=== PATIENT | female | born 1940 | race Caucasian/White ===

== ENCOUNTER → 2017-11-24 | Outpatient (CLI) | payer MEDICARE ==
--- NOTE | 2017-11-28 10:11 | MM ---
Reason for exam: screening (asymptomatic). Last mammogram was performed 3 years and 3 months ago. History: Patient is postmenopausal. Family history of breast cancer in sister at age 60 and breast cancer in mother at age 60. Physical Findings: A clinical breast exam by your physician is recommended on an annual basis and results should be correlated with mammographic findings. MG Screening Mammo w CAD Bilateral CC and MLO view(s) were taken. Prior study comparison: August 14, 2014, bilateral MG screening mammo w CAD. May 30, 2012, bilateral digital screening mammo w/CAD. The breast tissue is heterogeneously dense. This may lower the sensitivity of mammography. No significant changes when compared with prior studies. ASSESSMENT: Benign, BI-RAD 2 RECOMMENDATION: Routine screening mammogram of both breasts in 1 year.
== END | disposition home or self-care (01) ==
LOC: RADMAMWWP 13:36
PROVIDERS: ATTEND Family Medicine
DX: Z12.31 Encounter for screening mammogram for malignant neoplasm of breast (principal)
CPT/HCPCS: 77067

== ENCOUNTER 2019-08-12 17:51 | Emergency (ER) | payer MEDICARE ==
[2019-08-12 18:03] VITALS: RESP 16
--- NOTE | 2019-08-12 18:26 | ED ---
General Adult HPI - General Chief complaint: Fall Stated complaint: Fell few wks ago/dizzy hip pain not able to walk Time Seen by Provider: 08/12/19 18:03 Source: patient, RN notes reviewed, old records reviewed Mode of arrival: ambulatory Limitations: no limitations - History of Present Illness Initial comments: 78-year-old female patient presents to the for chief complaint of fall and hip pain. Patient reports that prior to arrival to emergency department she was walking, felt dizzy, fell forward. She reports that she has pain in her left hip. Patient is not ambulatory since fall. Patient denies any use of blood thinners. Patient denies any trauma to head or neck. Patient also had a fall approximately 2 weeks ago when she landed flat on her back. Patient reports this is also from being unsteady in her feet. At this time patient reports pain in her left hip. Denies any other complaints at this time. Denies any loss of consciousness. Denies any trauma to head or neck. Systemic: Pt denies fatigue, fever/chills, rash. Pt denies weakness, night sweats, weight loss. Neuro: Pt denies headache, visual disturbances, syncope or pre-syncope. HEENT: Pt denies ocular discharge or irritation, otalgia, rhinorrhea, pharyngitis or notable lymphadenopathy. Cardiopulmonary: Pt denies chest pain, SOB, heart palpitations, dyspnea on exertion. Abdominal/GI: Pt denies abdominal pain, n/v/d. : Pt denies dysuria, burning w/ urination, frequency/urgency. Denies new onset urinary or bowel incontinence. MSK: Pt denies myalgia, loss of strength or function in extremities. Neuro: Pt denies new onset weakness, paresthesias. - Related Data Home Medications Medication Instructions Recorded Confirmed Aspirin EC [Ecotrin Low Dose] 81 mg PO DAILY 08/12/19 08/12/19 Diabetic Multivitamin 1 tab PO DAILY 08/12/19 08/12/19 Enalapril [Vasotec] 10 mg PO BID 08/12/19 08/12/19 Propranolol HCl [Propranolol HCl 60 mg PO DAILY 08/12/19 08/12/19 ER] Simvastatin [Zocor] 20 mg PO DAILY 08/12/19 08/12/19 amLODIPine [Norvasc] 5 mg PO DAILY 08/12/19 08/12/19 metFORMIN HCL [Glucophage] 500 mg PO TID 08/12/19 08/12/19 Previous Rx's Medication Instructions Recorded Cephalexin [Keflex] 500 mg PO Q6HR 10 Days #40 cap 08/12/19 Allergies Allergy/AdvReac Type Severity Reaction Status Date / Time Sulfa (Sulfonamide Allergy Severe Rash/Hives Verified 08/12/19 18:16 Antibiotics) sulfamethoxazole Allergy Severe Rash/Hives Verified 08/12/19 18:16 [From Bactrim] trimethoprim [From Bactrim] Allergy Severe Rash/Hives Verified 08/12/19 18:16 Review of Systems ROS Statement: Those systems with pertinent positive or pertinent negative responses have been documented in the HPI. ROS Other: All systems not noted in ROS Statement are negative. Past Medical History Past Medical History: Diabetes Mellitus, Hypertension History of Any Multi-Drug Resistant Organisms: None Reported Past Surgical History: Orthopedic Surgery Additional Past Surgical History / Comment(s): right shoulder Past Psychological History: No Psychological Hx Reported Smoking Status: Never smoker Past Alcohol Use History: None Reported Past Drug Use History: None Reported General Exam - General Exam Comments Initial Comments: Constitutional: NAD, AOX3, Pt has pleasant affect. HEENT: NC/AT, trachea midline, neck supple, no lymphadenopathy. Posterior pharynx non erythematous, without exudates. External ears appear normal, without discharge. Mucous membranes moist. Eyes PERRLA, EOM intact. There is no scleral icterus. No pallor noted. Cardiopulmonary: RRR, no murmurs, rubs or gallops, no JVD noted. Lungs CTAB in anterior and posterior oreilly. No peripheral edema. Abdominal exam: Abdomen soft and non-distended. Abdomen non-tender to palpation in all 4 quadrants. Bowel sounds active in LLQ. No hepatosplenomegaly. No ecchymosis Neuro: CN II-XII grossly intact. No nuchal rigidity. No raccon eyes, no coreas sign, no hemotympanum. No cervical spinal tenderness. MSK: Hips nontender bilaterally. No posterior calf tenderness bilaterally, homans sign negative bilaterally. Posterior tibialis and radial pulse +2 bilaterally. Sensation intact in upper and lower extremities. Full active ROM in upper and lower extremities, 5/5 stregnth. Limitations: no limitations Course Vital Signs 08/12/19 17:58 Temperature 99.5 F Pulse Rate 92 Respiratory 16 Rate Blood Pressure 144/69 O2 Sat by Pulse 96 Oximetry Medical Decision Making - Medical Decision Making 78-year-old female patient presents to the for chief complaint of fall and hip pain. Patient reports that prior to arrival to emergency department she was walking, felt dizzy, fell forward. She reports that she has pain in her left hip. Patient is not ambulatory since fall. Patient denies any use of blood thinners. Patient denies any trauma to head or neck. Patient also had a fall approximately 2 weeks ago when she landed flat on her back. Patient reports this is also from being unsteady in her feet. At this time patient reports pain in her left hip. Denies any other complaints at this time. Denies any loss of consciousness. Denies any trauma to head or neck. Patient vital signs stable, afebrile. Physical exam did not display acute pathology. Neurologic exam is within normal limits. Laboratory Investigations revealed a leukocytosis of 20. Mild hyperglycemia. UA displayed urinary tract infection. Chest x-ray, plain film of hip and AP pelvis, brain CT did not display acute process. Patient leukocytosis likely secondary to urinary tract infection. Urine was cultured. EKG not concerning for acute ischemia. Troponin negative.Please use medication as discussed. Please follow-up with family doctor in the next 2 days of symptoms have not improved. Please return to emergency room if the symptoms in crease or worsen or for any other concerns. IV Rocephin ED. We'll discharged with oral Keflex and close outpatient follow-up. Patient and family are in agreement with this plan. Case discussed with Dr. Sosa. - Lab Data Result diagrams: 08/12/19 19:00 08/12/19 19:00 Lab Results 08/12/19 08/12/19 08/12/19 Range/Units 18:52 19:00 19:00 WBC 20.2 H (3.8-10.6) k/uL RBC 4.16 (3.80-5.40) m/uL Hgb 12.9 (11.4-16.0) gm/dL Hct 39.6 (34.0-46.0) % MCV 95.2 (80.0-100.0) fL MCH 30.9 (25.0-35.0) pg MCHC 32.5 (31.0-37.0) g/dL RDW 12.2 (11.5-15.5) % Plt Count 249 (150-450) k/uL Neutrophils % 91 % Lymphocytes % 3 % Monocytes % 4 % Eosinophils % 0 % Basophils % 0 % Neutrophils # 18.3 H (1.3-7.7) k/uL Lymphocytes # 0.6 L (1.0-4.8) k/uL Monocytes # 0.9 (0-1.0) k/uL Eosinophils # 0.1 (0-0.7) k/uL Basophils # 0.1 (0-0.2) k/uL Sodium 132 L (137-145) mmol/L Potassium 4.1 (3.5-5.1) mmol/L Chloride 97 L (98-107) mmol/L Carbon Dioxide 25 (22-30) mmol/L Anion Gap 10 mmol/L BUN 19 H (7-17) mg/dL Creatinine 0.63 (0.52-1.04) mg/dL Est GFR (CKD-EPI)AfAm >90 (>60 ml/min/1.73 sqM) Est GFR (CKD-EPI)NonAf 86 (>60 ml/min/1.73 sqM) Glucose 251 H (74-99) mg/dL POC Glucose (mg/dL) 229 H (75-99) mg/dL POC Glu Knowledge Engineer ID [place] Calcium 9.7 (8.4-10.2) mg/dL Phosphorus 2.7 (2.5-4.5) mg/dL Magnesium 1.7 (1.6-2.3) mg/dL Troponin I (0.000-0.034) ng/mL Urine Color Urine Appearance (Clear) Urine pH (5.0-8.0) Ur Specific [place] (1.001-1.035) Urine Protein (Negative) Urine Glucose (UA) (Negative) Urine Ketones (Negative) Urine Blood (Negative) Urine Nitrite (Negative) Urine Bilirubin (Negative) Urine Urobilinogen (<2.0) mg/dL Ur Leukocyte Esterase (Negative) Urine WBC (0-5) /hpf Urine Bacteria (None) /hpf Urine Mucus (None) /hpf 08/12/19 08/12/19 Range/Units 19:00 19:30 WBC (3.8-10.6) k/uL RBC (3.80-5.40) m/uL Hgb (11.4-16.0) gm/dL Hct (34.0-46.0) % MCV (80.0-100.0) fL MCH (25.0-35.0) pg MCHC (31.0-37.0) g/dL RDW (11.5-15.5) % Plt Count (150-450) k/uL Neutrophils % % Lymphocytes % % Monocytes % % Eosinophils % % Basophils % % Neutrophils # (1.3-7.7) k/uL Lymphocytes # (1.0-4.8) k/uL Monocytes # (0-1.0) k/uL Eosinophils # (0-0.7) k/uL Basophils # (0-0.2) k/uL Sodium (137-145) mmol/L Potassium (3.5-5.1) mmol/L Chloride (98-107) mmol/L Carbon Dioxide (22-30) mmol/L Anion Gap mmol/L BUN (7-17) mg/dL Creatinine (0.52-1.04) mg/dL Est GFR (CKD-EPI)AfAm (>60 ml/min/1.73 sqM) Est GFR (CKD-EPI)NonAf (>60 ml/min/1.73 sqM) Glucose (74-99) mg/dL POC Glucose (mg/dL) (75-99) mg/dL POC Glu Knowledge Engineer ID Calcium (8.4-10.2) mg/dL Phosphorus (2.5-4.5) mg/dL Magnesium (1.6-2.3) mg/dL Troponin I 0.015 (0.000-0.034) ng/mL Urine Color Yellow Urine Appearance Cloudy H (Clear) Urine pH 7.0 (5.0-8.0) Ur Specific [place] 1.012 (1.001-1.035) Urine Protein Trace H (Negative) Urine Glucose (UA) 3+ H (Negative) Urine Ketones 1+ H (Negative) Urine Blood Small H (Negative) Urine Nitrite Positive H (Negative) Urine Bilirubin Negative (Negative) Urine Urobilinogen <2.0 (<2.0) mg/dL Ur Leukocyte Esterase Trace H (Negative) Urine WBC 13 H (0-5) /hpf Urine Bacteria Few H (None) /hpf Urine Mucus Rare H (None) /hpf - EKG Data -: EKG Interpreted by Me EKG Comments: Ventricular rate 93, appearing for 146, QRS 96, QT/QTC 38/482. Sinus rhythm with sinus arrhythmia, otherwise normal EKG, no concern for acute ischemia. Disposition Clinical Impression: Fall, UTI (urinary tract infection) Disposition: HOME SELF-CARE Condition: Stable Instructions (If sedation given, give patient instructions): Urinary Tract Infection in Women (ED), Fall Prevention (ED) Additional Instructions: Patient to adhere to previously discussed treatment plan and will take medication(s) as directed. Patient to follow up with PCP in 1-2 days. Patient to return to ED if symptoms do not improve. Tkae Medication as directed. Follow-up with primary care provider tomorrow. Return to ER if condition worsens. Prescriptions: Cephalexin [Keflex] 500 mg PO Q6HR 10 Days #40 cap Is patient prescribed a controlled substance at d/c from ED?: No Referrals: Adrianne Yu DO [Primary Care Provider] - 1-2 days
[2019-08-12] MEDS ORDERED: SODIUM CHLORIDE 0.9% 500 ML 500 ML IV ONE (18:39)
--- NOTE | 2019-08-12 18:45 | XR ---
EXAMINATION TYPE: XR Hip LT and AP Pelvis DATE OF EXAM: 08/12/2019 COMPARISON: NONE HISTORY: Fall. Hip pain TECHNIQUE: A single AP view of the pelvis is obtained. Two views of the left hip are obtained. FINDINGS: The pelvic ring is intact. Proximal left femur and hip joint are intact. Sacroiliac joints appear normal. There is vascular calcification. IMPRESSION: Negative pelvis and left hip exam.
[2019-08-12 18:57] LABS: Glucose,Whole Blood 229 mg/dL (75-99)
[2019-08-12 19:14] LABS: Basophils # (A) 0.1 k/uL (0-0.2); Basophils % (A) 0 %; Eosinophils # (A) 0.1 k/uL (0-0.7); Eosinophils % (A) 0 %; HCT 39.6 % (34.0-46.0); HGB 12.9 gm/dL (11.4-16.0); Lymphocytes # (A) 0.6 k/uL (1.0-4.8); Lymphocytes % (A) 3 %; MCH 30.9 pg (25.0-35.0); MCHC 32.5 g/dL (31.0-37.0); MCV 95.2 fL (80.0-100.0); Mean Platelet Volume 6.2; Monocytes # (A) 0.9 k/uL (0-1.0); Monocytes % (A) 4 %; Neutrophils # (A) 18.3 k/uL (1.3-7.7); Neutrophils % (A) 91 %; Platelet Count 249 k/uL (150-450); RBC 4.16 m/uL (3.80-5.40); RDW 12.2 % (11.5-15.5); WBC 20.2 k/uL (3.8-10.6)
[2019-08-12 19:26] LABS: African American GFR (CKD) >90 (>60 ml/min/1.73 sqM); Anion Gap 10 mmol/L; Blood Urea Nitrogen 19 mg/dL (7-17); Calcium 9.7 mg/dL (8.4-10.2); Carbon Dioxide 25 mmol/L (22-30); Chloride 97 mmol/L (98-107); Glucose 251 mg/dL (74-99); Magnesium 1.7 mg/dL (1.6-2.3); Phosphorus 2.7 mg/dL (2.5-4.5); Potassium 4.1 mmol/L (3.5-5.1); Sodium 132 mmol/L (137-145)
[2019-08-12 19:49] LABS: Appearance,Urine Cloudy (Clear); Bacteria,Urine Few /hpf; Bilirubin,Urine Negative (Negative); Blood,Urine Small (Negative); Color,Urine Yellow; Glucose,Urine (UA) 3+ (Negative); Ketones,Urine 1+ (Negative); Leukocyte Esterase,Urine Trace (Negative); Mucus,Urine Rare /hpf; Nitrite,Urine Positive (Negative); Protein,Urine Trace (Negative); Specific Gravity,Urine 1.012 (1.001-1.035); Urobilinogen,Urine <2.0 mg/dL (<2.0); WBC,Urine 13 /hpf (0-5)
--- NOTE | 2019-08-12 20:03 | CT ---
EXAMINATION TYPE: CT brain wo con DATE OF EXAM: 08/12/2019 COMPARISON: None HISTORY: Dizziness and fall. CT DLP: 1139.4 mGycm Automated exposure control for dose reduction was used. FINDINGS: There is cerebral cortical atrophy. There is no mass effect nor midline shift. There is no sign of in tracranial hemorrhage. The calvarium is intact. IMPRESSION: MILD ATROPHY. NO ACUTE INTRACRANIAL ABNORMALITY.
--- NOTE | 2019-08-12 20:32 | XR ---
EXAMINATION TYPE: XR chest 2V DATE OF EXAM: 08/12/2019 COMPARISON: NONE HISTORY: Fall and weakness TECHNIQUE: Frontal and lateral views of the chest are obtained. FINDINGS: There is no heart failure nor confluent pneumonic infiltrate. There are no hilar masses. T horacic aorta is atheromatous. There is minor spurring in the thoracic spine. Costophrenic angles are clear. There is moderate arthritic change in the shoulder joints with significant subacromial joint space narrowing and impingement. IMPRESSION: No active cardiopulmonary disease. Normal heart. Atheromatous aorta.
[2019-08-12] MEDS ORDERED: IBUPROFEN 600 MG TAB PO STA (20:43)
[2019-08-12] MEDS ORDERED: CEPHALEXIN 500MG STARTER PACK 4 CAP BTL PO STA (20:43)
[2019-08-12] MEDS ORDERED: IBUPROFEN 600 MG STARTER PACK 4 TAB BTL PO STA (20:43)
[2019-08-12 20:59] VITALS: BP 133/87; PULSE 87; TEMP 98
== END 2019-08-12 20:59 | disposition home or self-care (01) ==
LOC: EC 17:51
DX: N39.0 Urinary tract infection, site not specified (principal); M25.552 Pain in left hip; E11.65 Type 2 diabetes mellitus with hyperglycemia; I10 Essential (primary) hypertension; Z79.82 Long term (current) use of aspirin; Z79.84 Long term (current) use of oral hypoglycemic drugs; Z79.899 Other long term (current) drug therapy; Z88.1 Allergy status to other antibiotic agents; Z88.2 Allergy status to sulfonamides; W19.XXXA Unspecified fall, initial encounter; Y93.01 Activity, walking, marching and hiking
CPT/HCPCS: 36415; 93005; 80048; 83735; 84100; 84484; 85025; 81001; 87086; 73502; 71046; 70450; 99285; 96365; 96361; J0696; 87077; 87186

== ENCOUNTER 2021-03-14 16:38 | Observation (INO) | payer MEDICARE ==
[2021-03-14] MEDS ORDERED: SODIUM CHLORIDE 0.9% 1,000 ML IV STA (16:55)
--- NOTE | 2021-03-14 16:57 | ED ---
Weakness HPI - General Chief complaint: Weakness Stated complaint: Weakness Time Seen by Provider: 03/14/21 16:49 Source: patient Mode of arrival: wheelchair Limitations: no limitations - History of Present Illness Initial comments: Sheryl is an 80-year-old female is brought to the ER today by her daughter for evaluation of generalized weakness. Patient has a history of essential tremor but lives independently ambulate since and drives. Over the past week her daughters noted that she is very weak she can no longer ambulate without assistance. This has happened in the past when the patient has had a urinary infection. Patient denies any acute complaints aside from the weakness reports she feels mildly fatigued. - Related Data Home Medications Medication Instructions Recorded Confirmed Aspirin EC [Ecotrin Low Dose] 81 mg PO DAILY 08/12/19 03/14/21 Diabetic Multivitamin 1 tab PO DAILY 08/12/19 03/14/21 Enalapril [Vasotec] 10 mg PO BID 08/12/19 03/14/21 Propranolol HCl [Propranolol HCl 60 mg PO DAILY 08/12/19 03/14/21 ER] Simvastatin [Zocor] 20 mg PO Q48H 08/12/19 03/14/21 amLODIPine [Norvasc] 5 mg PO DAILY 08/12/19 03/14/21 metFORMIN HCL [Glucophage] 500 mg PO BID 08/12/19 03/14/21 Glimepiride [Amaryl] 1 mg PO DAILY 03/14/21 03/14/21 Multivitamins, Thera [Multivitamin 1 tab PO DAILY 03/14/21 03/14/21 (formulary)] Oxybutynin Chloride [Ditropan] 5 mg PO DAILY 03/14/21 03/14/21 Allergies Allergy/AdvReac Type Severity Reaction Status Date / Time Sulfa (Sulfonamide Allergy Severe Rash/Hives Verified 03/14/21 18:45 Antibiotics) sulfamethoxazole Allergy Severe Rash/Hives Verified 03/14/21 18:45 [From Bactrim] trimethoprim [From Bactrim] Allergy Severe Rash/Hives Verified 03/14/21 18:45 Review of Systems ROS Statement: Those systems with pertinent positive or pertinent negative responses have been documented in the HPI. ROS Other: All systems not noted in ROS Statement are negative. Past Medical History Past Medical History: Diabetes Mellitus, Hypertension History of Any Multi-Drug Resistant Organisms: None Reported Past Surgical History: Orthopedic Surgery Additional Past Surgical History / Comment(s): right shoulder Past Psychological History: No Psychological Hx Reported Smoking Status: Never smoker Past Alcohol Use History: None Reported Past Drug Use History: None Reported General Exam - General Exam Comments Initial Comments: Physical Exam GENERAL: Patient is well-developed and well-nourished elderly female in no acute distress Patient is nontoxic and well-hydrated and is in no distress. HENT: Normocephalic, Atraumatic. EYES: PERRL, EOMI PULMONARY: Unlabored respirations. No audible rales rhonchi or wheezing was noted. CARDIOVASCULAR: There is a regular rate and rhythm without any murmurs gallops or rubs. ABDOMEN: Soft and nontender with normal bowel sounds. SKIN: Skin is clear with no lesions or rashes and otherwise unremarkable. : Deferred NEUROLOGIC: Patient is alert and oriented x3. Moving all extremities spontaneously Tremor noted most prominent in the right upper extremity at baseline per patient MUSCULOSKELETAL: Generalized weakness, requires assistance with transfer from wheelchair to bed and bed to commode PSYCHIATRIC: Normal psychiatric evaluation. Limitations: no limitations Course Vital Signs 03/14/21 03/14/21 16:46 18:07 Temperature 97.9 F 97.6 F Pulse Rate 81 76 Respiratory 18 20 Rate Blood Pressure 115/67 137/62 O2 Sat by Pulse 96 97 Oximetry EKG Findings - EKG Comments: EKG Findings:: KG was obtained due to complaint of weakness, rate is 73 rhythm is sinus, MA 144, QRS 88, QTC 429 there are no acute ST elevations or depressions no evidence of ischemia or infarction Medical Decision Making - Medical Decision Making Patient seen and evaluated history is obtained from patient and daughter bedside Labs were obtained and were relatively unremarkable urine does show bacteria and nitrates no leukocyte esterase Rocephin will be ordered Patient with continued urinary urgency was able to produce approximately 100 mL's of urine bladder scan showed over 700 mL's in the bladder and she was straight cathed which produced 800mL Head CT was obtained due to generalized weakness urinary retention in gait instability but CT was negative Patient care was discussed with admitting physician Dr. Jordan who accepts the admission After admission patient and daughter remember the patient has a history of bladder prolapse and wears a pessary she is currently wearing her pessary but has not followed with gynecology in a number of years - Lab Data Result diagrams: 03/14/21 16:59 03/14/21 16:59 Lab Results 03/14/21 03/14/21 03/14/21 Range/Units 16:59 16:59 16:59 WBC 6.4 (3.8-10.6) k/uL RBC 4.12 (3.80-5.40) m/uL Hgb 13.5 (11.4-16.0) gm/dL Hct 39.0 (34.0-46.0) % MCV 94.6 (80.0-100.0) fL MCH 32.8 (25.0-35.0) pg MCHC 34.6 (31.0-37.0) g/dL RDW 11.9 (11.5-15.5) % Plt Count 231 (150-450) k/uL MPV 6.7 Neutrophils % 63 % Lymphocytes % 23 % Monocytes % 8 % Eosinophils % 2 % Basophils % 1 % Neutrophils # 4.0 (1.3-7.7) k/uL Lymphocytes # 1.5 (1.0-4.8) k/uL Monocytes # 0.5 (0-1.0) k/uL Eosinophils # 0.2 (0-0.7) k/uL Basophils # 0.1 (0-0.2) k/uL Sodium 135 L (137-145) mmol/L Potassium 4.5 (3.5-5.1) mmol/L Chloride 102 (98-107) mmol/L Carbon Dioxide 24 (22-30) mmol/L Anion Gap 9 mmol/L BUN 25 H (7-17) mg/dL Creatinine 0.72 (0.52-1.04) mg/dL Est GFR (CKD-EPI)AfAm >90 (>60 ml/min/1.73 sqM) Est GFR (CKD-EPI)NonAf 80 (>60 ml/min/1.73 sqM) Glucose 165 H (74-99) mg/dL POC Glucose (mg/dL) (75-99) mg/dL POC Glu Sales Professional ID Calcium 9.7 (8.4-10.2) mg/dL Magnesium 1.8 (1.6-2.3) mg/dL Total Bilirubin 0.4 (0.2-1.3) mg/dL AST 35 (14-36) U/L ALT 26 (4-34) U/L Alkaline Phosphatase 68 (38-126) U/L Total Protein 7.4 (6.3-8.2) g/dL Albumin 4.4 (3.5-5.0) g/dL TSH 1.760 (0.465-4.680) mIU/L Urine Color Yellow Urine Appearance Clear (Clear) Urine pH 5.5 (5.0-8.0) Ur Specific [place] 1.011 (1.001-1.035) Urine Protein Negative (Negative) Urine Glucose (UA) Negative (Negative) Urine Ketones Negative (Negative) Urine Blood Negative (Negative) Urine Nitrite Positive H (Negative) Urine Bilirubin Negative (Negative) Urine Urobilinogen <2.0 (<2.0) mg/dL Ur Leukocyte Esterase Negative (Negative) Urine RBC 2 (0-5) /hpf Urine WBC 2 (0-5) /hpf Urine Bacteria Many H (None) /hpf Urine Mucus Rare H (None) /hpf Coronavirus (PCR) (Not Detectd) 03/14/21 03/14/21 Range/Units 17:17 20:16 WBC (3.8-10.6) k/uL RBC (3.80-5.40) m/uL Hgb (11.4-16.0) gm/dL Hct (34.0-46.0) % MCV (80.0-100.0) fL MCH (25.0-35.0) pg MCHC (31.0-37.0) g/dL RDW (11.5-15.5) % Plt Count (150-450) k/uL MPV Neutrophils % % Lymphocytes % % Monocytes % % Eosinophils % % Basophils % % Neutrophils # (1.3-7.7) k/uL Lymphocytes # (1.0-4.8) k/uL Monocytes # (0-1.0) k/uL Eosinophils # (0-0.7) k/uL Basophils # (0-0.2) k/uL Sodium (137-145) mmol/L Potassium (3.5-5.1) mmol/L Chloride (98-107) mmol/L Carbon Dioxide (22-30) mmol/L Anion Gap mmol/L BUN (7-17) mg/dL Creatinine (0.52-1.04) mg/dL Est GFR (CKD-EPI)AfAm (>60 ml/min/1.73 sqM) Est GFR (CKD-EPI)NonAf (>60 ml/min/1.73 sqM) Glucose (74-99) mg/dL POC Glucose (mg/dL) 143 H (75-99) mg/dL POC Glu Sales Professional ID [place]ue [place] Calcium (8.4-10.2) mg/dL Magnesium (1.6-2.3) mg/dL Total Bilirubin (0.2-1.3) mg/dL AST (14-36) U/L ALT (4-34) U/L Alkaline Phosphatase (38-126) U/L Total Protein (6.3-8.2) g/dL Albumin (3.5-5.0) g/dL TSH (0.465-4.680) mIU/L Urine Color Urine Appearance (Clear) Urine pH (5.0-8.0) Ur Specific [place] (1.001-1.035) Urine Protein (Negative) Urine Glucose (UA) (Negative) Urine Ketones (Negative) Urine Blood (Negative) Urine Nitrite (Negative) Urine Bilirubin (Negative) Urine Urobilinogen (<2.0) mg/dL Ur Leukocyte Esterase (Negative) Urine RBC (0-5) /hpf Urine WBC (0-5) /hpf Urine Bacteria (None) /hpf Urine Mucus (None) /hpf Coronavirus (PCR) Not Detected (Not Detectd) Disposition Clinical Impression: UTI (urinary tract infection), Generalized weakness, Bladder prolapse, female, acquired, Urinary retention Disposition: ADMITTED IP TO THIS [facility] Condition: Stable Is patient prescribed a controlled substance at d/c from ED?: No Referrals: Adrianne Yu DO [REFERRING] - 1-2 days
[2021-03-14 17:06] LABS: Basophils # (A) 0.1 k/uL (0-0.2); Basophils % (A) 1 %; Eosinophils # (A) 0.2 k/uL (0-0.7); Eosinophils % (A) 2 %; HGB 13.5 gm/dL (11.4-16.0); Lymphocytes # (A) 1.5 k/uL (1.0-4.8); Lymphocytes % (A) 23 %; MCH 32.8 pg (25.0-35.0); MCHC 34.6 g/dL (31.0-37.0); MCV 94.6 fL (80.0-100.0); Mean Platelet Volume 6.7; Monocytes # (A) 0.5 k/uL (0-1.0); Monocytes % (A) 8 %; Neutrophils % (A) 63 %; Platelet Count 231 k/uL (150-450); RBC 4.12 m/uL (3.80-5.40); RDW 11.9 % (11.5-15.5); WBC 6.4 k/uL (3.8-10.6)
[2021-03-14 17:16] LABS: ALT 26 U/L (4-34); AST 35 U/L (14-36); African American GFR (CKD) >90 (>60 ml/min/1.73 sqM); Albumin 4.4 g/dL (3.5-5.0); Alkaline Phosphatase 68 U/L (38-126); Anion Gap 9 mmol/L; Blood Urea Nitrogen 25 mg/dL (7-17); Calcium 9.7 mg/dL (8.4-10.2); Carbon Dioxide 24 mmol/L (22-30); Chloride 102 mmol/L (98-107); Glucose 165 mg/dL (74-99); Magnesium 1.8 mg/dL (1.6-2.3); Non-African American GFR(CKD) 80 (>60 ml/min/1.73 sqM); Potassium 4.5 mmol/L (3.5-5.1); Sodium 135 mmol/L (137-145); Total Bilirubin 0.4 mg/dL (0.2-1.3); Total Protein 7.4 g/dL (6.3-8.2)
[2021-03-14 18:30] LABS: Appearance,Urine Clear (Clear); Bacteria,Urine Many /hpf; Bilirubin,Urine Negative (Negative); Blood,Urine Negative (Negative); Color,Urine Yellow; Glucose,Urine (UA) Negative (Negative); Ketones,Urine Negative (Negative); Leukocyte Esterase,Urine Negative (Negative); Mucus,Urine Rare /hpf; Nitrite,Urine Positive (Negative); PH, Urine 5.5 (5.0-8.0); Protein,Urine Negative (Negative); RBC,Urine 2 /hpf (0-5); Specific Gravity,Urine 1.011 (1.001-1.035); Urobilinogen,Urine <2.0 mg/dL (<2.0); WBC,Urine 2 /hpf (0-5)
[2021-03-14 20:19] LABS: Glucose,Whole Blood 143 mg/dL (75-99)
--- NOTE | 2021-03-14 21:18 | CT ---
EXAMINATION TYPE: CT brain wo con DATE OF EXAM: 03/14/2021 COMPARISON: 08/12/2019 HISTORY: Weakness and confusion. CT DLP: 1111.4 mGycm Automated exposure control for dose reduction was used. There is cerebral cortical atrophy. There is no mass effect nor midline shift. There is no sign of in tracranial hemorrhage. Calvarium is intact. There is normal aeration of the mastoid air cells. Skull base is intact. IMPRESSION: Cerebral atrophy. No acute intracranial abnormality. No change.
[2021-03-14] MEDS ORDERED: cefTRIAXone IN SWFI 1,000 MG/10 ML SYRINGE IVP ONE (21:45)
[2021-03-14] MEDS ORDERED: IBUPROFEN 400 MG TAB PO PRN (21:57)
[2021-03-14] MEDS ORDERED: NALOXONE 0.4 MG/ML 1 ML VIAL IV PRN (21:57)
[2021-03-14] MEDS ORDERED: ACETAMINOPHEN TAB 325 MG TAB PO PRN (21:57)
[2021-03-14] MEDS ORDERED: ONDANSETRON 4 MG/2 ML VIAL IVP PRN (23:13)
[2021-03-15 06:48] LABS: Glucose,Whole Blood 140 mg/dL (75-99)
[2021-03-15] MEDS: amLODIPine 5 MG TAB PO SCH (09:30)
[2021-03-15] MEDS: ASPIRIN 81 MG PO SCH (09:30)
[2021-03-15] MEDS: GLIMEPIRIDE 1 MG TAB PO SCH (09:30)
[2021-03-15 11:22] LABS: Glucose,Whole Blood 240 mg/dL (75-99)
[2021-03-15 16:27] LABS: Glucose,Whole Blood 249 mg/dL (75-99)
[2021-03-15 20:47] LABS: Glucose,Whole Blood 215 mg/dL (75-99)
[2021-03-15] MEDS ORDERED: ATORVASTATIN 10 MG TAB PO SCH (21:00)
--- NOTE | 2021-03-16 06:21 | P.HPIM ---
History of Present Illness H&P Date: 03/15/21 Chief Complaint: abdominal pain Sheryl Montejo is an 80 yo F with PMH of HTN, T2DM, bladder prolapse who presented to the ED complaining of weakness and fatigue. She denies fever, chills but notes has been sleeping more. She does endorse some abdominal pressure. Pt denies nausea, vomiting. On presentation, vitals stable, labs significant for WBC 6k, sodium 135, UA with positive bacteria and nitrites, COVID negative. Straight cath with 800 cc out. Review of Systems All systems: negative Constitutional: Reports fatigue, Reports malaise, Reports weakness, Denies chills, Denies fever Eyes: denies blurred vision, denies pain Ears, nose, mouth and throat: Denies headache, Denies sore throat Cardiovascular: Denies chest pain, Denies shortness of breath Respiratory: Denies cough Gastrointestinal: Reports abdominal pain, Denies diarrhea, Denies nausea, Denies vomiting Genitourinary: Denies dysuria, Denies hematuria Musculoskeletal: Denies myalgias Integumentary: Denies pruritus, Denies rash Neurological: Denies numbness, Denies weakness Psychiatric: Denies anxiety, Denies depression Endocrine: Denies fatigue, Denies weight change Past Medical History Past Medical History: Diabetes Mellitus, Hypertension Additional Past Medical History / Comment(s): prolapsed bladder with a pessary History of Any Multi-Drug Resistant Organisms: None Reported Past Surgical History: Adenoidectomy, Orthopedic Surgery, Tonsillectomy Additional Past Surgical History / Comment(s): right shoulder Past Anesthesia/Blood Transfusion Reactions: No Reported Reaction Past Psychological History: No Psychological Hx Reported Smoking Status: Never smoker Past Alcohol Use History: None Reported Past Drug Use History: None Reported Medications and Allergies Home Medications Medication Instructions Recorded Confirmed Type Aspirin EC [Ecotrin Low Dose] 81 mg PO DAILY 08/12/19 03/14/21 History Diabetic Multivitamin 1 tab PO DAILY 08/12/19 03/14/21 History Enalapril [Vasotec] 10 mg PO BID 08/12/19 03/14/21 History Propranolol HCl [Propranolol HCl 60 mg PO DAILY 08/12/19 03/14/21 History ER] Simvastatin [Zocor] 20 mg PO Q48H 08/12/19 03/14/21 History amLODIPine [Norvasc] 5 mg PO DAILY 08/12/19 03/14/21 History metFORMIN HCL [Glucophage] 500 mg PO BID 08/12/19 03/14/21 History Glimepiride [Amaryl] 1 mg PO DAILY 03/14/21 03/14/21 History Multivitamins, Thera [Multivitamin 1 tab PO DAILY 03/14/21 03/14/21 History (formulary)] Oxybutynin Chloride [Ditropan] 5 mg PO DAILY 03/14/21 03/14/21 History Allergies Allergy/AdvReac Type Severity Reaction Status Date / Time Sulfa (Sulfonamide Allergy Severe Rash/Hives Verified 03/14/21 18:45 Antibiotics) sulfamethoxazole Allergy Severe Rash/Hives Verified 03/14/21 18:45 [From Bactrim] trimethoprim [From Bactrim] Allergy Severe Rash/Hives Verified 03/14/21 18:45 Physical Exam Vitals: Vital Signs Temp Pulse Resp BP Pulse Ox 03/16/21 02:00 98.0 F 65 16 124/65 99 03/15/21 20:00 72 16 03/15/21 19:43 98.3 F 72 16 132/67 95 03/15/21 13:52 98.3 F 68 18 116/61 95 03/15/21 07:54 97.9 F 66 18 124/70 95 03/15/21 07:00 18 Intake and Output 03/15/21 03/15/21 03/16/21 14:59 22:59 06:59 Output Total 700 1450 1400 Balance -700 -1450 -1400 Output: Urine 700 1450 1400 Uretheral (Shaikh) 700 Other: Voiding Method Indwelling Catheter General: well nourished, well developed, NAD. Vitals reviewed Eyes: PERRL, EOMI, conjunctiva normal HENT: normocephalic, mucus membranes moist Neck: supple, no JVD Lungs: normal respiratory effort, no wheezes or rales CV: Regular rate and rhythm, no murmur. Peripheral pulses 2+ Abdomen: soft, nondistended, no organomegaly. Suprapubic pressure Lymph: no cervical or axillary LAD Skin: warm and dry. Neuro: A&Ox3, normal mood and affect Results CBC & Chem 7: 03/14/21 16:59 03/14/21 16:59 Labs: Abnormal Lab Results - Last 24 Hours (Table) 03/15/21 03/15/21 03/15/21 Range/Units 06:46 11:20 16:26 POC Glucose (mg/dL) 140 H 240 H 249 H (75-99) mg/dL 03/15/21 Range/Units 20:45 POC Glucose (mg/dL) 215 H (75-99) mg/dL Thrombosis Risk Factor Assmnt - Choose All That Apply Each Risk Factor Represents 3 Points: Age 75 years or older Thrombosis Risk Factor Assessment Total Risk Factor Score: 3 Thrombosis Risk Factor Assessment Level: Moderate Risk Assessment and Plan (1) Bladder prolapse, female, acquired Current Visit: Yes Status: Acute Code(s): N81.10 - CYSTOCELE, UNSPECIFIED SNOMED Code(s): 267117987 (2) Generalized weakness Current Visit: Yes Status: Acute Code(s): R53.1 - WEAKNESS SNOMED Code(s): 31823558 (3) UTI (urinary tract infection) Current Visit: Yes Status: Acute Code(s): N39.0 - URINARY TRACT INFECTION, SITE NOT SPECIFIED SNOMED Code(s): 61894804 (4) Urinary retention Current Visit: Yes Status: Acute Code(s): R33.9 - RETENTION OF URINE, UNSPECIFIED SNOMED Code(s): 277584151 Plan: 1. Acute cystitis and acute urinary retention. Admit and start rocephin. Shaikh catheter placed 2. T2DM. Continue amaryl, hold metformin. accuchecks 3. HTN. Continue norvasc 4. Bladder prolapse. Continue with pessary device
[2021-03-16 07:08] LABS: Glucose,Whole Blood 138 mg/dL (75-99)
[2021-03-16] MEDS: amLODIPine 5 MG TAB PO SCH (07:18)
[2021-03-16] MEDS: GLIMEPIRIDE 1 MG TAB PO SCH (07:18)
[2021-03-16] MEDS: ASPIRIN 81 MG PO SCH (07:18)
[2021-03-16] MEDS: INSULIN ASPART (NovoLOG) 100 UNIT/ML VIAL SQ SCH ×2 (07:19→11:54)
[2021-03-16] MEDS ORDERED: TAMSULOSIN 0.4 MG CAP.ER.24H PO STA (11:25)
[2021-03-16 11:53] LABS: Glucose,Whole Blood 161 mg/dL (75-99)
[2021-03-16 13:25] VITALS: BP 129/70; PULSE 98; RESP 18; TEMP 98
--- NOTE | 2021-03-16 15:34 | P.DS ---
Providers Date of admission: 03/14/21 21:58 Expected date of discharge: 03/16/21 Attending physician: Marques Nance MD Primary care physician: Marques Nance MD Hospital Course: Final Diagnoses: (1) Bladder prolapse, female, acquired Current Visit: Yes Status: Acute Code(s): N81.10 - CYSTOCELE, UNSPECIFIED SNOMED Code(s): 227900704 (2) Generalized weakness Current Visit: Yes Status: Acute Code(s): R53.1 - WEAKNESS SNOMED Code(s): 06034451 (3) UTI (urinary tract infection) Current Visit: Yes Status: Acute Code(s): N39.0 - URINARY TRACT INFECTION, SITE NOT SPECIFIED SNOMED Code(s): 52614944 (4) Urinary retention Current Visit: Yes Status: Acute Code(s): R33.9 - RETENTION OF URINE, UNSPECIFIED SNOMED Code(s): 144447418 Hospital course:Sheryl Montejo is an 80 yo F with PMH of HTN, T2DM, bladder prolapse who presented to the ED complaining of weakness and fatigue. She denies fever, chills but notes has been sleeping more. She does endorse some abdominal pressure. Pt denies nausea, vomiting. On presentation, vitals stable, labs significant for WBC 6k, sodium 135, UA with positive bacteria and nitrites, COVID negative. Straight cath with 800 cc out. Evaluated by PT, recommendations noted including rolling walker, supervision. Significant clinical improvement. Shaikh discontinued, positive spontaneous void within 290 mL's post void residual. Flomax added to med regimen. Post void residuals measured from 236-290. Mild diffuse weakness, would benefit from physical therapy. Patient requesting physical therapy at home. Patient will require Shaikh catheter at discharge and to follow-up with urology in 1 week. Patient will be discharged home today with [facility] in a stable condition with current prognosis. The impression and plan of care has been dictated as directed. : I performed a history and examination of this patient, discussed the same with the dictator. I agree with the dictator's note ,documented as a scribe. Any additional findings or plans will be noted. Patient Condition at Discharge: Stable Plan - Discharge Summary Discharge Rx Participant: No New Discharge Prescriptions: New Cefuroxime Axetil [Ceftin] 500 mg PO BID 5 Days #10 tab Tamsulosin [Flomax] 0.4 mg PO DAILY #30 cap Continue Diabetic Multivitamin 1 tab PO DAILY Aspirin EC [Ecotrin Low Dose] 81 mg PO DAILY metFORMIN HCL [Glucophage] 500 mg PO BID amLODIPine [Norvasc] 5 mg PO DAILY Simvastatin [Zocor] 20 mg PO Q48H Propranolol HCl [Propranolol HCl ER] 60 mg PO DAILY Enalapril [Vasotec] 10 mg PO BID Multivitamins, Thera [Multivitamin (formulary)] 1 tab PO DAILY Oxybutynin Chloride [Ditropan] 5 mg PO DAILY Glimepiride [Amaryl] 1 mg PO DAILY Discharge Medication List Aspirin EC [Ecotrin Low Dose] 81 mg PO DAILY 08/12/19 [History] Diabetic Multivitamin 1 tab PO DAILY 08/12/19 [History] Enalapril [Vasotec] 10 mg PO BID 08/12/19 [History] Propranolol HCl [Propranolol HCl ER] 60 mg PO DAILY 08/12/19 [History] Simvastatin [Zocor] 20 mg PO Q48H 08/12/19 [History] amLODIPine [Norvasc] 5 mg PO DAILY 08/12/19 [History] metFORMIN HCL [Glucophage] 500 mg PO BID 08/12/19 [History] Glimepiride [Amaryl] 1 mg PO DAILY 03/14/21 [History] Multivitamins, Thera [Multivitamin (formulary)] 1 tab PO DAILY 03/14/21 [History] Oxybutynin Chloride [Ditropan] 5 mg PO DAILY 03/14/21 [History] Cefuroxime Axetil [Ceftin] 500 mg PO BID 5 Days #10 tab 03/16/21 [Rx] Tamsulosin [Flomax] 0.4 mg PO DAILY #30 cap 03/16/21 [Rx] Follow up Appointment(s)/Referral(s): Marques Nance MD [Primary Care Provider] - 03/19/21 2:00 pm [facility] [NON-STAFF] - Kodi Bernard MD [STAFF PHYSICIAN] - 04/06/21 8:20 am Ambulatory/Diagnostic Orders: Complete Blood Count w/diff [LAB.AMB] Time Frame: 3 Days, Location: None Selected Patient Instructions/Handouts: Urinary Tract Infection in Women (DC), Shaikh Catheter Placement and Care (DC) Activity/Diet/Wound Care/Special Instructions: CC home with Shaikh catheter, confirm urology follow-up appointment prior to discharge. [facility] Discharge Disposition: HOME WITH HOME HEALTH SERVICES
== END 2021-03-16 16:07 | disposition home health service (06) ==
LOC: EC 16:38 → 4SSUR 21:58
PROVIDERS: ADMIT Family Medicine; ATTEND Family Medicine
DX: N30.00 Acute cystitis without hematuria (principal); N81.10 Cystocele, unspecified; E11.9 Type 2 diabetes mellitus without complications; I10 Essential (primary) hypertension; G25.0 Essential tremor; R33.9 Retention of urine, unspecified; R26.89 Other abnormalities of gait and mobility; Z20.822 Contact with and (suspected) exposure to COVID-19; Z79.82 Long term (current) use of aspirin; Z79.84 Long term (current) use of oral hypoglycemic drugs; Z79.899 Other long term (current) drug therapy; Z88.1 Allergy status to other antibiotic agents; Z88.2 Allergy status to sulfonamides; Z98.890 Other specified postprocedural states
CPT/HCPCS: 96365; 96366 ×2; 96375; 96361; 99285; 51798; 36415; 93005; 97161; 97166; 80053; 83735; 84443; 85025; 81001; 87635; 70450; G0378 ×3; J2405; J0696 ×2

== ENCOUNTER 2021-05-27 15:09 | Emergency (ER) | payer MEDICARE ==
[2021-05-27 15:20] VITALS: TEMP 98.6
--- NOTE | 2021-05-27 15:40 | ED ---
General Adult HPI - General Chief complaint: Nausea/Vomiting/Diarrhea Stated complaint: Stool labs sent by pcp Time Seen by Provider: 05/27/21 15:27 Source: patient Mode of arrival: ambulatory Limitations: no limitations - History of Present Illness Initial comments: Patient is an 80-year-old female presenting to the emergency Department with complaints of diarrhea that has been increasing over the past week. Patient saw her PCP today who recommended coming in for further evaluation. She states she normally has diarrhea intermittently for years now secondary to being on metformin. She states she was treated for UTI last month and since then her diarrhea has increased. She was having some abdominal pain on Monday and with the diarrhea, her doctor put her on Cipro and Flagyl. She states that the Flagyl was making her feel dizzy and not well so she stopped taking that, she has been on the Cipro for the last 4 days. She went for a follow-up today and they recommended her coming in for a stool study to rule out C. diff as well as an abdominal workup. She states her abdominal pain is gone today, she has no nausea or vomiting. She denies any fevers or chills, no chest pain or shortness of breath. She admits to tubal ligation, no other abdominal surgeries. She has been eating and drinking as her normal diet. She denies any dysuria or frequency. She has no further complaints at this time. Her vitals are within normal limits. - Related Data Home Medications Medication Instructions Recorded Confirmed Aspirin EC [Ecotrin Low Dose] 81 mg PO BID 08/12/19 05/27/21 Diabetic Multivitamin 1 tab PO HS 08/12/19 05/27/21 Enalapril [Vasotec] 20 mg PO BID 08/12/19 05/27/21 Propranolol HCl [Propranolol HCl 60 mg PO HS 08/12/19 05/27/21 ER] Simvastatin [Zocor] 20 mg PO Q48H 08/12/19 05/27/21 metFORMIN HCL [Glucophage] 500 mg PO W/SUPPER 08/12/19 05/27/21 Glimepiride [Amaryl] 1 mg PO DAILY 03/14/21 05/27/21 Multivitamins, Thera [Multivitamin 1 tab PO DAILY 03/14/21 05/27/21 (formulary)] Oxybutynin Chloride [Ditropan] 5 mg PO HS 03/14/21 05/27/21 Ciprofloxacin HCl [Cipro] 500 mg PO BID 05/27/21 05/27/21 Mirabegron [Myrbetriq] 50 mg PO DAILY 05/27/21 05/27/21 Allergies Allergy/AdvReac Type Severity Reaction Status Date / Time Sulfa (Sulfonamide Allergy Severe Rash/Hives Verified 05/27/21 15:20 Antibiotics) sulfamethoxazole Allergy Severe Rash/Hives Verified 05/27/21 15:20 [From Bactrim] trimethoprim [From Bactrim] Allergy Severe Rash/Hives Verified 05/27/21 15:20 Review of Systems ROS Statement: Those systems with pertinent positive or pertinent negative responses have been documented in the HPI. ROS Other: All systems not noted in ROS Statement are negative. Past Medical History Past Medical History: Diabetes Mellitus, Hypertension Additional Past Medical History / Comment(s): prolapsed bladder with a pessary, UTI History of Any Multi-Drug Resistant Organisms: None Reported Past Surgical History: Adenoidectomy, Orthopedic Surgery, Tonsillectomy Additional Past Surgical History / Comment(s): right shoulder Past Anesthesia/Blood Transfusion Reactions: No Reported Reaction Past Psychological History: No Psychological Hx Reported Smoking Status: Never smoker Past Alcohol Use History: None Reported Past Drug Use History: None Reported General Exam - General Exam Comments Initial Comments: GENERAL: Patient is well-developed and well-nourished. Patient is nontoxic and in no acute distress. HEAD: Atraumatic, normocephalic. EYES: Pupils equal round and reactive to light, extraocular movements intact, sclera anicteric, conjunctiva are normal. Eyelids were unremarkable. ENT: TMs normal, nares patent, oropharynx clear without exudates. Moist mucous membranes. NECK: Normal range of motion, supple without lymphadenopathy or JVD. LUNGS: Unlabored respirations. Breath sounds clear to auscultation bilaterally and equal. No wheezes rales or rhonchi. HEART: Regular rate and rhythm without murmurs, rubs or gallops. ABDOMEN: Soft, nontender, normoactive bowel sounds. No guarding, no rebound. No masses appreciated. : Deferred MUSCULOSKELETAL: Normal extremities with adequate strength and normal range of motion, no pitting or edema. No clubbing or cyanosis. NEUROLOGICAL: Patient is alert and oriented x 3. Motor and sensory are also intact. Cranial nerves II through XII grossly intact. Symmetrical smile. Normal speech, normal gait. PSYCH: Normal mood, normal affect. SKIN: Warm, Dry, normal turgor, no rashes or lesions noted. Limitations: no limitations Course Vital Signs 05/27/21 05/27/21 05/27/21 15:16 15:36 18:00 Temperature 98.6 F Pulse Rate 78 68 70 Respiratory 17 20 20 Rate Blood Pressure 188/88 136/82 157/80 O2 Sat by Pulse 97 97 95 Oximetry Medical Decision Making - Medical Decision Making Patient is an 80-year-old female sent in by her PCPs office for diarrhea, requesting a computed tomography scan as well. Her vitals are stable. She has no abdominal pain, no fevers. Her labs are all within normal limits, urine shows no evidence for infection. CT of abdomen and pelvis shows no acute proce ss at this time. I did order a C. diff were patient was unable to have a bowel movement here in the ER. I will send her home with an order to test for C. diff. She stable for discharge. I recommended continuing with her already prescribed antibiotics. She should follow-up with her primary care doctor. She could have a trial of Imodium for the diarrhea. Patient and patient's family are agreeable to this plan of care. Return parameters were discussed with them they verbalized understanding. Case discussed with Dr. Sosa. - Lab Data Result diagrams: 05/27/21 15:53 05/27/21 15:53 Lab Results 05/27/21 05/27/21 05/27/21 Range/Units 15:52 15:53 15:53 WBC 6.9 (3.8-10.6) k/uL RBC 4.40 (3.80-5.40) m/uL Hgb 15.0 (11.4-16.0) gm/dL Hct 42.7 (34.0-46.0) % MCV 97.1 (80.0-100.0) fL MCH 34.1 (25.0-35.0) pg MCHC 35.1 (31.0-37.0) g/dL RDW 12.5 (11.5-15.5) % Plt Count 253 (150-450) k/uL MPV 6.8 Neutrophils % 67 % Lymphocytes % 21 % Monocytes % 7 % Eosinophils % 1 % Basophils % 1 % Neutrophils # 4.6 (1.3-7.7) k/uL Lymphocytes # 1.4 (1.0-4.8) k/uL Monocytes # 0.5 (0-1.0) k/uL Eosinophils # 0.1 (0-0.7) k/uL Basophils # 0.1 (0-0.2) k/uL Sodium 137 (137-145) mmol/L Potassium 4.1 (3.5-5.1) mmol/L Chloride 105 (98-107) mmol/L Carbon Dioxide 22 (22-30) mmol/L Anion Gap 10 mmol/L BUN 19 H (7-17) mg/dL Creatinine 0.61 (0.52-1.04) mg/dL Est GFR (CKD-EPI)AfAm >90 (>60 ml/min/1.73 sqM) Est GFR (CKD-EPI)NonAf 86 (>60 ml/min/1.73 sqM) Glucose 118 H (74-99) mg/dL Calcium 10.0 (8.4-10.2) mg/dL Total Bilirubin 0.2 (0.2-1.3) mg/dL AST 34 (14-36) U/L ALT 17 (4-34) U/L Alkaline Phosphatase 68 (38-126) U/L Total Protein 7.5 (6.3-8.2) g/dL Albumin 4.4 (3.5-5.0) g/dL Urine Color Light Yellow Urine Appearance Clear (Clear) Urine pH 7.5 (5.0-8.0) Ur Specific [place] 1.009 (1.001-1.035) Urine Protein Negative (Negative) Urine Glucose (UA) Negative (Negative) Urine Ketones Negative (Negative) Urine Blood Moderate H (Negative) Urine Nitrite Negative (Negative) Urine Bilirubin Negative (Negative) Urine Urobilinogen <2.0 (<2.0) mg/dL Ur Leukocyte Esterase Negative (Negative) Urine RBC 11 H (0-5) /hpf Urine WBC 1 (0-5) /hpf Ur Squamous Epith Cells 1 (0-4) /hpf Urine Bacteria Rare H (None) /hpf Disposition Clinical Impression: Diarrhea Disposition: HOME SELF-CARE Condition: Stable Instructions (If sedation given, give patient instructions): Acute Diarrhea (ED) Additional Instructions: Please return to the Emergency Department if symptoms worsen or any other concerns. Trial of Imodium for diarrhea. Continue to drink your water daily. Take your antibiotics as already prescribed. Prescription for C. diff test was given. Follow-up with your primary care physician. Is patient prescribed a controlled substance at d/c from ED?: No Referrals: Marques Nance MD [Primary Care Provider] - 1-2 days Time of Disposition: 18:19
[2021-05-27] MEDS ORDERED: SODIUM CHLORIDE 0.9% 500 ML 500 ML IV STA (15:41)
[2021-05-27 15:48] VITALS: RESP 20
[2021-05-27 16:04] LABS: Basophils # (A) 0.1 k/uL (0-0.2); Basophils % (A) 1 %; Eosinophils # (A) 0.1 k/uL (0-0.7); Eosinophils % (A) 1 %; HCT 42.7 % (34.0-46.0); Lymphocytes # (A) 1.4 k/uL (1.0-4.8); Lymphocytes % (A) 21 %; MCH 34.1 pg (25.0-35.0); MCHC 35.1 g/dL (31.0-37.0); MCV 97.1 fL (80.0-100.0); Mean Platelet Volume 6.8; Monocytes # (A) 0.5 k/uL (0-1.0); Monocytes % (A) 7 %; Neutrophils # (A) 4.6 k/uL (1.3-7.7); Neutrophils % (A) 67 %; Platelet Count 253 k/uL (150-450); RDW 12.5 % (11.5-15.5); WBC 6.9 k/uL (3.8-10.6)
[2021-05-27 16:11] LABS: Appearance,Urine Clear (Clear); Bacteria,Urine Rare /hpf; Bilirubin,Urine Negative (Negative); Blood,Urine Moderate (Negative); Color,Urine Light Yellow; Glucose,Urine (UA) Negative (Negative); Ketones,Urine Negative (Negative); Leukocyte Esterase,Urine Negative (Negative); Nitrite,Urine Negative (Negative); PH, Urine 7.5 (5.0-8.0); Protein,Urine Negative (Negative); RBC,Urine 11 /hpf (0-5); Specific Gravity,Urine 1.009 (1.001-1.035); Squamous Epithelial Cell,Urine 1 /hpf (0-4); Urobilinogen,Urine <2.0 mg/dL (<2.0); WBC,Urine 1 /hpf (0-5)
[2021-05-27 16:17] LABS: ALT 17 U/L (4-34); AST 34 U/L (14-36); African American GFR (CKD) >90 (>60 ml/min/1.73 sqM); Albumin 4.4 g/dL (3.5-5.0); Alkaline Phosphatase 68 U/L (38-126); Anion Gap 10 mmol/L; Blood Urea Nitrogen 19 mg/dL (7-17); Carbon Dioxide 22 mmol/L (22-30); Chloride 105 mmol/L (98-107); Glucose 118 mg/dL (74-99); Non-African American GFR(CKD) 86 (>60 ml/min/1.73 sqM); Potassium 4.1 mmol/L (3.5-5.1); Sodium 137 mmol/L (137-145); Total Bilirubin 0.2 mg/dL (0.2-1.3); Total Protein 7.5 g/dL (6.3-8.2)
--- NOTE | 2021-05-27 17:51 | CT ---
EXAMINATION TYPE: CT abdomen pelvis w con DATE OF EXAM: 05/27/2021 COMPARISON: None available. HISTORY: Generalized pain with nausea and diarrhea CT DLP: 851 mGycm Automated exposure control for dose reduction was used. TECHNIQUE: Helical acquisition of images was performed from the lung bases through the pelvis. CONTRAST: Performed without Oral Contrast and with IV Contrast, patient injected with 100 mL of Isovue 300. FINDINGS: LUNG BASES: No significant abnormality is appreciated. LIVER/GB: No significant abnormality is appreciated. PANCREAS: No significant abnormality is seen. SPLEEN: No significant abnormality is seen. ADRENALS: No significant abnormality is seen. KIDNEYS: Right renal pelvic ectasia versus parapelvic cyst. Otherwise no hydronephrosis or nephrolith iasis. FREE AIR: No free air is visualized. RETROPERITONEAL ADENOPATHY: None visualized REPRODUCTIVE ORGANS: No significant abnormality is seen URINARY BLADDER: Mildly distended urinary bladder. Otherwise no acute abnormality is seen. PELVIC ADENOPATHY: None visualized. OSSEOUS STRUCTURES: No significant abnormality is seen. BOWEL: No significant abnormality is seen. OTHER: Pessary device seen. Moderate atherosclerotic disease. IMPRESSION: NO DEFINITE ACUTE ABNORMALITY. RIGHT RENAL PELVIC VERSUS PARAPELVIC CYST. DISTENDED URINARY BLADDER.
[2021-05-27 18:05] VITALS: BP 157/80; PULSE 70
== END 2021-05-27 18:40 | disposition home or self-care (01) ==
LOC: EC 15:09
DX: E11.9 Type 2 diabetes mellitus without complications (principal); I10 Essential (primary) hypertension; Z79.82 Long term (current) use of aspirin; Z79.84 Long term (current) use of oral hypoglycemic drugs; Z79.899 Other long term (current) drug therapy; Z88.1 Allergy status to other antibiotic agents; Z88.2 Allergy status to sulfonamides
CPT/HCPCS: 36415; 80053; 85025; 81001; 74177; 99284; Q9967

== ENCOUNTER 2021-06-06 12:37 | Inpatient (IN) | payer MEDICARE ==
[2021-06-06] MEDS ORDERED: SODIUM CHLORIDE 0.9% 500 ML 500 ML IV STA (12:59)
[2021-06-06] MEDS ORDERED: MORPHINE SULFATE 2 MG/ML SYRINGE IVP STA ×2 (13:01→15:07)
--- NOTE | 2021-06-06 13:13 | ED ---
General Adult HPI - General Chief complaint: Fall Stated complaint: FAll Time Seen by Provider: 06/06/21 12:41 Source: patient, EMS, RN notes reviewed Mode of arrival: EMS Limitations: no limitations - History of Present Illness Initial comments: 80-year-old female with a past medical history of diabetes mellitus, hypertension, UTI presents to the emergency room for a chief complaint of fall. Around 8 PM last night patient was walking up the stairs when she fell down the flight of stairs. There are about 15 stairs in total. Patient does not recall how or why she fell. Does not recall tripping. Does not recall losing consciousness or passing out leading to her fall. Patient states she does not believe she lost consciousness. States she crawled to another room and slept on the floor. Patient's granddaughter came today and found her. Patient is not taking blood thinners. Patient is complaining of pain in her upper back when breathing.Patient has no other complaints at this time including shortness of breath, chest pain, abdominal pain, nausea or vomiting, headache, or visual changes. - Related Data Home Medications Medication Instructions Recorded Confirmed Aspirin EC [Ecotrin Low Dose] 81 mg PO BID 08/12/19 06/06/21 Enalapril [Vasotec] 20 mg PO BID 08/12/19 06/06/21 Propranolol HCl [Propranolol HCl 60 mg PO HS 08/12/19 06/06/21 ER] Simvastatin [Zocor] 20 mg PO Q48H 08/12/19 06/06/21 Glimepiride [Amaryl] 1 mg PO DAILY 03/14/21 06/06/21 Multivitamins, Thera [Multivitamin 1 tab PO DAILY 03/14/21 06/06/21 (formulary)] Oxybutynin Chloride [Ditropan] 5 mg PO HS 03/14/21 06/06/21 Mirabegron [Myrbetriq] 50 mg PO DAILY 05/27/21 06/06/21 metFORMIN HCL ER [Glucophage XR] 500 mg PO AC-SUPPER 06/06/21 06/06/21 Allergies Allergy/AdvReac Type Severity Reaction Status Date / Time Sulfa (Sulfonamide Allergy Severe Rash/Hives Verified 05/27/21 15:20 Antibiotics) sulfamethoxazole Allergy Severe Rash/Hives Verified 07/29/21 15:20 [From Bactrim] trimethoprim [From Bactrim] Allergy Severe Rash/Hives Verified 05/27/21 15:20 Review of Systems ROS Statement: Those systems with pertinent positive or pertinent negative responses have been documented in the HPI. ROS Other: All systems not noted in ROS Statement are negative. Past Medical History Past Medical History: Diabetes Mellitus, Hypertension Additional Past Medical History / Comment(s): prolapsed bladder with a pessary, UTI History of Any Multi-Drug Resistant Organisms: None Reported Past Surgical History: Adenoidectomy, Orthopedic Surgery, Tonsillectomy Additional Past Surgical History / Comment(s): right shoulder Past Anesthesia/Blood Transfusion Reactions: No Reported Reaction Past Psychological History: No Psychological Hx Reported Smoking Status: Never smoker Past Alcohol Use History: None Reported Past Drug Use History: None Reported General Exam Limitations: no limitations General appearance: alert, in no apparent distress Head exam: Present: atraumatic, normocephalic, normal inspection Eye exam: Present: normal appearance, PERRL, EOMI. Absent: scleral icterus, conjunctival injection, periorbital swelling ENT exam: Present: normal exam, mucous membranes moist Neck exam: Present: normal inspection, full ROM. Absent: tenderness, meningismus, lymphadenopathy Respiratory exam: Present: normal lung sounds bilaterally. Absent: respiratory distress, wheezes, rales Cardiovascular Exam: Present: regular rate, normal rhythm, normal heart sounds. Absent: systolic murmur, diastolic murmur, rubs, gallop, clicks GI/Abdominal exam: Present: soft, tenderness (Mild left lower quadrant tenderness. No guarding or rebound.), normal bowel sounds. Absent: distended, guarding, rebound, rigid Extremities exam: Present: other (Moving all extremities) Back exam: Absent: CVA tenderness (R), CVA tenderness (L), vertebral tenderness Neurological exam: Present: alert, oriented X3, other (GCS 15) Course Vital Signs 06/06/21 12:39 Temperature 98.1 F Pulse Rate 77 Respiratory 18 Rate Blood Pressure 154/83 O2 Sat by Pulse 93 L Oximetry EKG Findings - EKG Comments: EKG Findings:: Normal sinus rhythm, ventricular rate 75, RI interval 168, QTC 471 Procedures - Laceration Laceration #1 Consent Obtained: verbal consent Indication: laceration Site: scalp Size (cm): 3 Description: linear Depth: simple, single layer Pre-repair: wound explored, irrigated extensively, deep structures intact Type of Sutures: other (lorena) Number of Sutures: 4 Technique: simple, interrupted Patient Tolerated Procedure: well, no complications Medical Decision Making - Medical Decision Making Vitals are stable. Patient presents with fall after being on the floor for the last 16 hours. Patient does not recall why she fell. She fell down a flight of stairs. EKG does not show any evidence of ST elevation. CBC is unremarkable. Hemoglobin stable at 13.8. CMP does show some slight dehydration. Patient's creatine kinase was elevated at 1400. Her troponin was elevated at 1.3. Portable 1 view chest showed left lateral 6/7 and eighth rib fractures without pneumothorax. CT of the chest abdomen and pelvis was obtained. These fractures actually do appear old however patient does have 100% acute displaced Lateral right third fourth and fifth rib fractures. Pt also has lower lobe pulmonary in filtrates with pleural fluid. Patient is denying cough or fever. White count is normal. Possibility of hemothorax. Case is discussed with Dr. Hoover, given near syncope prior to her fall as well as elevated troponin and possible cardiac event requests admission to medicine with trauma consultation. Case was discussed with Dr. Jordan for admission. Accepts and Requests consultation to pulmonology, okay with not starting antibiotics. Case was also discussed with Dr. Hall who does not want heparin started, we will trend her troponin. - Lab Data Result diagrams: 06/06/21 13:02 06/06/21 13:02 Lab Results 06/06/21 06/06/21 06/06/21 Range/Units 13:02 13:02 13:02 WBC 9.4 (3.8-10.6) k/uL RBC 4.08 (3.80-5.40) m/uL Hgb 13.8 (11.4-16.0) gm/dL Hct 40.0 (34.0-46.0) % MCV 98.0 (80.0-100.0) fL MCH 33.7 (25.0-35.0) pg MCHC 34.4 (31.0-37.0) g/dL RDW 12.4 (11.5-15.5) % Plt Count 203 (150-450) k/uL MPV 6.9 Neutrophils % 83 % Lymphocytes % 9 % Monocytes % 5 % Eosinophils % 1 % Basophils % 1 % Neutrophils # 7.8 H (1.3-7.7) k/uL Lymphocytes # 0.8 L (1.0-4.8) k/uL Monocytes # 0.5 (0-1.0) k/uL Eosinophils # 0.1 (0-0.7) k/uL Basophils # 0.1 (0-0.2) k/uL PT 11.2 (9.0-12.0) sec INR 1.1 (<1.2) APTT 23.1 (22.0-30.0) sec Sodium 137 (137-145) mmol/L Potassium 4.1 (3.5-5.1) mmol/L Chloride 103 (98-107) mmol/L Carbon Dioxide 26 (22-30) mmol/L Anion Gap 8 mmol/L BUN 28 H (7-17) mg/dL Creatinine 0.61 (0.52-1.04) mg/dL Est GFR (CKD-EPI)AfAm >90 (>60 ml/min/1.73 sqM) Est GFR (CKD-EPI)NonAf 86 (>60 ml/min/1.73 sqM) Glucose 168 H (74-99) mg/dL Calcium 9.8 (8.4-10.2) mg/dL Total Bilirubin 0.8 (0.2-1.3) mg/dL AST 75 H (14-36) U/L ALT 32 (4-34) U/L Alkaline Phosphatase 57 (38-126) U/L Creatine Kinase 1439 H* (30-135) U/L Troponin I (0.000-0.034) ng/mL Total Protein 7.1 (6.3-8.2) g/dL Albumin 4.2 (3.5-5.0) g/dL 06/06/21 Range/Units 13:02 WBC (3.8-10.6) k/uL RBC (3.80-5.40) m/uL Hgb (11.4-16.0) gm/dL Hct (34.0-46.0) % MCV (80.0-100.0) fL MCH (25.0-35.0) pg MCHC (31.0-37.0) g/dL RDW (11.5-15.5) % Plt Count (150-450) k/uL MPV Neutrophils % % Lymphocytes % % Monocytes % % Eosinophils % % Basophils % % Neutrophils # (1.3-7.7) k/uL Lymphocytes # (1.0-4.8) k/uL Monocytes # (0-1.0) k/uL Eosinophils # (0-0.7) k/uL Basophils # (0-0.2) k/uL PT (9.0-12.0) sec INR (<1.2) APTT (22.0-30.0) sec Sodium (137-145) mmol/L Potassium (3.5-5.1) mmol/L Chloride (98-107) mmol/L Carbon Dioxide (22-30) mmol/L Anion Gap mmol/L BUN (7-17) mg/dL Creatinine (0.52-1.04) mg/dL Est GFR (CKD-EPI)AfAm (>60 ml/min/1.73 sqM) Est GFR (CKD-EPI)NonAf (>60 ml/min/1.73 sqM) Glucose (74-99) mg/dL Calcium (8.4-10.2) mg/dL Total Bilirubin (0.2-1.3) mg/dL AST (14-36) U/L ALT (4-34) U/L Alkaline Phosphatase (38-126) U/L Creatine Kinase (30-135) U/L Troponin I 1.380 H* (0.000-0.034) ng/mL Total Protein (6.3-8.2) g/dL Albumin (3.5-5.0) g/dL Disposition Clinical Impression: Multiple rib fractures, Abnormal pleural fluid, Fall, Elevated troponin, Near syncope, Elevated CK Disposition: ADMITTED IP TO THIS HOSP Is patient prescribed a controlled substance at d/c from ED?: No Referrals: Catherine Nance DO [Primary Care Provider] - 1-2 days Time of Disposition: 15:31
[2021-06-06 13:14] LABS: Basophils # (A) 0.1 k/uL (0-0.2); Basophils % (A) 1 %; Eosinophils # (A) 0.1 k/uL (0-0.7); Eosinophils % (A) 1 %; HGB 13.8 gm/dL (11.4-16.0); Lymphocytes # (A) 0.8 k/uL (1.0-4.8); Lymphocytes % (A) 9 %; MCH 33.7 pg (25.0-35.0); MCHC 34.4 g/dL (31.0-37.0); Mean Platelet Volume 6.9; Monocytes # (A) 0.5 k/uL (0-1.0); Monocytes % (A) 5 %; Neutrophils # (A) 7.8 k/uL (1.3-7.7); Neutrophils % (A) 83 %; Platelet Count 203 k/uL (150-450); RBC 4.08 m/uL (3.80-5.40); RDW 12.4 % (11.5-15.5); WBC 9.4 k/uL (3.8-10.6)
[2021-06-06 13:22] LABS: INR 1.1 (<1.2); Partial Thromboplastin Time 23.1 sec (22.0-30.0); Prothrombin Time 11.2 sec (9.0-12.0)
[2021-06-06 13:33] LABS: ALT 32 U/L (4-34); AST 75 U/L (14-36); African American GFR (CKD) >90 (>60 ml/min/1.73 sqM); Albumin 4.2 g/dL (3.5-5.0); Alkaline Phosphatase 57 U/L (38-126); Anion Gap 8 mmol/L; Blood Urea Nitrogen 28 mg/dL (7-17); Calcium 9.8 mg/dL (8.4-10.2); Carbon Dioxide 26 mmol/L (22-30); Chloride 103 mmol/L (98-107); Glucose 168 mg/dL (74-99); Non-African American GFR(CKD) 86 (>60 ml/min/1.73 sqM); Potassium 4.1 mmol/L (3.5-5.1); Sodium 137 mmol/L (137-145); Total Bilirubin 0.8 mg/dL (0.2-1.3); Total Protein 7.1 g/dL (6.3-8.2)
[2021-06-06 13:50] LABS: Creatine Kinase 1439 U/L (30-135)
--- NOTE | 2021-06-06 14:03 | XR ---
EXAMINATION TYPE: XR pelvis AP view DATE OF EXAM: 06/06/2021 COMPARISON: None HISTORY: Trauma, fall TECHNIQUE: Pelvis FINDINGS: Sacroiliac joints are intact. Symphysis pubis is normal. Femoral heads articulate with the acetabulum. No acute fractures or dislocations are evident. Normal bowel gas is present. Vascular cassius cification is present. IMPRESSION: 1. No acute posttraumatic changes AP pelvis
--- NOTE | 2021-06-06 14:05 | XR ---
EXAMINATION TYPE: XR chest 1V portable DATE OF EXAM: 06/06/2021 COMPARISON: 08/12/2019 INDICATION: Trauma and fall TECHNIQUE: Single frontal view of the chest is obtained. FINDINGS: The heart size is within limits of normal for size. The pulmonary vasculature is normal. There may be some mild atelectasis within the periphery of the left lung. Left sixth seventh and eighth rib fractures are evident. No pneumothorax is evident. No additional fr actures are identified. Note is made of chronic rotator cuff tear of the bilateral shoulders. IMPRESSION: 1. Left lateral sixth seventh and eighth rib fractures without pneumothorax. Some atelectasis may be adjacent.
--- NOTE | 2021-06-06 14:54 | CT ---
EXAMINATION TYPE: CT brain corey diaz con DATE OF EXAM: 06/06/2021 COMPARISON: 03/14/2021 HISTORY: Fall CT DLP: 1337.2 mGycm Automated exposure control for dose reduction was used. There is cerebral cortical atrophy. There is no mass effect nor midline shift. There is no sign of in tracranial hemorrhage. The calvarium is intact. There is linear defect in the scalp with air bubble c onsistent with laceration over the left parietal bone. The cervical vertebra have normal alignment. Disc spaces are fairly normal. Facet joints are intact. There is no fracture. There is hypertrophic mild facet arthropathy. IMPRESSION: Minimal degenerative spurring in the cervical spine. No fracture. Cerebral atrophy. No acute intracranial abnormality. No change. Left parietal scalp laceration.
--- NOTE | 2021-06-06 15:07 | CT ---
EXAMINATION TYPE: CT ChestAbdPelvis w con DATE OF EXAM: 06/06/2021 COMPARISON: 05/27/2021 HISTORY: Fall CT DLP: 1008.1 mGycm Automated exposure control for dose reduction was used. CONTRAST: Performed with IV Contrast, patient injected with 100 mL of Isovue 300. Images obtained from the thoracic inlet to the diaphragm with IV contrast. There are 3-D post process ed images. There is bilateral pleural effusion and larger on the left side. Heart size is fairly normal. There i s no pericardial effusion. There is airspace infiltrate and atelectasis in both lower lobes. There are no hilar masses. There is no mediastinal adenopathy. Thoracic aorta is atheromatous. Ascend ing aorta measures 3.7 cm. There is no dissection. There is no evidence of filling defect in the pulmonary arteries. Thoracic spine is intact. The patel um is intact. There is a minimal degenerative first-degree L4-5 spondylolisthesis. The bony pelvis is intact. Hip joints appear intact. The shoulder joints are intact. There is fracture lateral right th ird and fourth and fifth ribs with 100% displacement. There is healing fractures of the lateral left sixth and seventh and eighth ribs. There is old fracture left ninth rib posteriorly. Liver spleen pancreas appear intact. The bile ducts are not dilated. Gallbladder is large and measure s 4 cm in diameter. There is no adrenal mass. There is satisfactory contrast opacification of the kid neys. There is no hydronephrosis. There is 4 cm parapelvic cyst at the lower pole right kidney. Urete rs are not dilated. There is no retroperitoneal adenopathy. Bladder is large. Uterus is anteverted. U rinary bladder measures 16.5 cm. There is no inguinal hernia. There is no free fluid in the pelvis. There is no evidence of a bowel obstruction. There is contrast material in the large bowel. There is mild thoracic dextroscoliosis. There is a mild thoracolumbar levoscoliosis. IMPRESSION: Lower lobe pulmonary infiltrates with pleural fluid. No evidence of pulmonary embolism. Multiple acute right-sided rib fractures. Dilated urinary bladder. This appears similar to old exam.
[2021-06-06] MEDS ORDERED: SODIUM CHLORIDE 0.9% 1,000 ML IV STA (15:31)
[2021-06-06 15:58] LABS: Appearance,Urine Clear (Clear); Bilirubin,Urine Negative (Negative); Blood,Urine Negative (Negative); Color,Urine Yellow; Glucose,Urine (UA) Negative (Negative); Ketones,Urine 1+ (Negative); Leukocyte Esterase,Urine Negative (Negative); Nitrite,Urine Negative (Negative); Protein,Urine Negative (Negative); Specific Gravity,Urine 1.042 (1.001-1.035); Urobilinogen,Urine <2.0 mg/dL (<2.0)
[2021-06-06 17:58] LABS: Glucose,Whole Blood 172 mg/dL (75-99)
--- NOTE | 2021-06-06 18:01 | P.HPIM ---
History of Present Illness H&P Date: 06/06/21 Chief Complaint: Fall 80-year-old female with a past medical history of diabetes mellitus, hypertension, UTI presents to the emergency room for a chief complaint of fall. Around 8 PM last night patient was walking up the stairs when she fell down the flight of stairs. There are about 15 stairs in total. Patient does not recall how or why she fell. Does not recall tripping. Does not recall losing consciousness or passing out leading to her fall. Patient states she does not believe she lost consciousness. States she crawled to another room and slept on the floor. Patient's granddaughter came today and found her. Patient is not taking blood thinners. Patient is complaining of pain in her upper back when breathing.Patient has no other complaints at this time including shortness of breath, chest pain, abdominal pain, nausea or vomiting, headache, or visual c hanges. EKG does not show any evidence of ST elevation. CBC is unremarkable. Hemoglobin stable at 13.8. CMP does show some slight dehydration. Patient's creatine kinase was elevated at 1400. Her troponin was elevated at 1.3. Portable 1 view chest showed left lateral 6/7 and eighth rib fractures without pneumothorax. CT of the chest abdomen and pelvis was obtained. These fractures actually do appear old however patient does have 100% acute displaced Lateral right third fourth and fifth rib fractures. Pt also has lower lobe pulmonary infiltrates with pleural fluid. Review of Systems REVIEW OF SYSTEMS: CONSTITUTIONAL: No fever, no malaise, no fatigue. HEENT: No recent visual problems or hearing problems. Denied any sore throat. CARDIOVASCULAR: No chest pain, orthopnea, PND, no palpitations, no syncope. PULMONARY: No shortness of breath, no cough, no hemoptysis. GASTROINTESTINAL: No diarrhea, no nausea, no vomiting, no abdominal pain. NEUROLOGICAL: No headaches, no weakness, no numbness. HEMATOLOGICAL: Denies any bleeding or petechiae. GENITOURINARY: Denies any burning micturition, frequency, or urgency. MUSCULOSKELETAL/RHEUMATOLOGICAL: Denies any joint pain, swelling, or any muscle pain. ENDOCRINE: Denies any polyuria or polydipsia. The rest of the 14-point review of systems is negative. Past Medical History Past Medical History: Diabetes Mellitus, Hypertension Additional Past Medical History / Comment(s): prolapsed bladder with a pessary, UTI History of Any Multi-Drug Resistant Organisms: None Reported Past Surgical History: Adenoidectomy, Orthopedic Surgery, Tonsillectomy Additional Past Surgical History / Comment(s): right shoulder Past Anesthesia/Blood Transfusion Reactions: No Reported Reaction Past Psychological History: No Psychological Hx Reported Smoking Status: Never smoker Past Alcohol Use History: None Reported Past Drug Use History: None Reported Medications and Allergies Home Medications Medication Instructions Recorded Confirmed Type Aspirin EC [Ecotrin Low Dose] 81 mg PO BID 08/12/19 06/06/21 History Enalapril [Vasotec] 20 mg PO BID 08/12/19 06/06/21 History Propranolol HCl [Propranolol HCl 60 mg PO HS 08/12/19 06/06/21 History ER] Simvastatin [Zocor] 20 mg PO Q48H 08/12/19 06/06/21 History Glimepiride [Amaryl] 1 mg PO DAILY 03/14/21 06/06/21 History Multivitamins, Thera [Multivitamin 1 tab PO DAILY 03/14/21 06/06/21 History (formulary)] Oxybutynin Chloride [Ditropan] 5 mg PO HS 03/14/21 06/06/21 History Mirabegron [Myrbetriq] 50 mg PO DAILY 05/27/21 06/06/21 History metFORMIN HCL ER [Glucophage XR] 500 mg PO AC-SUPPER 06/06/21 06/06/21 History Allergies Allergy/AdvReac Type Severity Reaction Status Date / Time Sulfa (Sulfonamide Allergy Severe Rash/Hives Verified 05/27/21 15:20 Antibiotics) sulfamethoxazole Allergy Severe Rash/Hives Verified 05/27/21 15:20 [From Bactrim] trimethoprim [From Bactrim] Allergy Severe Rash/Hives Verified 05/27/21 15:20 Physical Exam Vitals: Vital Signs Temp Pulse Resp BP Pulse Ox 06/06/21 12:39 98.1 F 77 18 154/83 93 L Intake and Output 06/06/21 06/06/21 06/06/21 06:59 14:59 22:59 Other: Weight 58.967 kg PHYSICAL EXAMINATION: GENERAL: The patient is alert and oriented x3, not in any acute distress. Well developed, well nourished. HEENT: Pupils are round and equally reacting to light. EOMI. No scleral icterus. No conjunctival pallor. Normocephalic, atraumatic. No pharyngeal erythema. No th yromegaly. CARDIOVASCULAR: S1 and S2 present. No murmurs, rubs, or gallops. PULMONARY: Chest is clear to auscultation, no wheezing or crackles. ABDOMEN: Soft, nontender, nondistended, normoactive bowel sounds. No palpable organomegaly. MUSCULOSKELETAL: No joint swelling or deformity. EXTREMITIES: No cyanosis, clubbing, or pedal edema. NEUROLOGICAL: Gross neurological examination did not reveal any focal deficits. SKIN: No rashes. Results CBC & Chem 7: 06/06/21 13:02 06/06/21 13:02 Labs: Abnormal Lab Results - Last 24 Hours (Table) 06/06/21 06/06/21 06/06/21 Range/Units 13:02 13:02 13:02 Neutrophils # 7.8 H (1.3-7.7) k/uL Lymphocytes # 0.8 L (1.0-4.8) k/uL BUN 28 H (7-17) mg/dL Glucose 168 H (74-99) mg/dL AST 75 H (14-36) U/L Creatine Kinase 1439 H* (30-135) U/L Troponin I 1.380 H* (0.000-0.034) ng/mL Assessment and Plan Assessment: 1. Near syncope/fall - Admit to cardiac telemetry; monitor EKG and cardiac enzymes; consult cardiology for further recommendations 2. Multiple rib fractures; pain control with IV morphine 4 mg every 4 hours when necessary; patient encouraged incentive spirometry every to 2 hours while awake; we'll consult pulmonary for further recommendations 3. Elevated troponin; patient discussed with cardiology and recommended to hold off on IV heparin; we will continue with aspirin and statin therapy; order 2-D echo 4. Elevated creatinine kinase; possibly trauma related; doubt acute cardiac event - Patient will be placed on IV fluids with close monitoring of renal function and CPK levels 5. Hyperglycemia/diabetes mellitus; continue with home dose of metformin; monitor Accu-Cheks every before meals and at bedtime with insulin sliding scale 6. Hypertension; lisinopril 40 mg by mouth twice a day; propranolol 60 mg by mouth daily at bedtime 7. Hyperlipidemia; Lipitor 10 mg by mouth every 48 hours 8. Urinary incontinence; Ditropan 5 mg by mouth daily at bedtime DVT prophylaxis; SCDs CODE STATUS; full code
[2021-06-06] MEDS: metFORMIN 500 MG TAB PO SCH (18:02)
[2021-06-06] MEDS: MORPHINE SULFATE 4 MG/ML SYRINGE IVP PRN (18:14)
[2021-06-06] MEDS: INSULIN ASPART (NovoLOG) 100 UNIT/ML VIAL SQ SCH ×2 (18:28→20:40)
[2021-06-06 20:19] LABS: Glucose,Whole Blood 176 mg/dL (75-99)
[2021-06-06] MEDS: lisinopriL 20 MG TAB PO SCH (20:40)
[2021-06-06] MEDS: ASPIRIN 81 MG PO SCH (20:40)
[2021-06-06] MEDS: PROPRANOLOL LA 60 MG CAP.SA.24H PO SCH (20:40)
[2021-06-06] MEDS: OXYBUTYNIN CHLORIDE 5 MG TAB PO SCH (20:40)
[2021-06-07] MEDS: MORPHINE SULFATE 4 MG/ML SYRINGE IVP PRN (03:51)
[2021-06-07 06:23] LABS: Glucose,Whole Blood 148 mg/dL (75-99)
--- NOTE | 2021-06-07 06:26 | P.GSHP ---
History of Present Illness H&P Date: 06/07/21 Notified by ER that patient is status post fall. I spoke to attending emergency room provider Dr. Hooper who reported patient was in the process of being evaluated without any known current injuries. He did report patient presents with elevated troponin for acute myocardial event. In the case of acute GA without traumatic injuries, admission to medicine was appropriate with trauma consult. In the presence of injuries, admission to trauma was also described. Recommend management for acute myocardial infarction. Pulmonary toilet and pain services for acute refractory pain. Pulmonary services advised. Past Medical History Past Medical History: Diabetes Mellitus, Hypertension Additional Past Medical History / Comment(s): prolapsed bladder with a pessary, UTI History of Any Multi-Drug Resistant Organisms: None Reported Past Surgical History: Adenoidectomy, Orthopedic Surgery, Tonsillectomy Additional Past Surgical History / Comment(s): right shoulder Past Anesthesia/Blood Transfusion Reactions: No Reported Reaction Past Psychological History: No Psychological Hx Reported Smoking Status: Never smoker Past Alcohol Use History: None Reported Past Drug Use History: None Reported Medications and Allergies Home Medications Medication Instructions Recorded Confirmed Type Aspirin EC [Ecotrin Low Dose] 81 mg PO BID 08/12/19 06/06/21 History Enalapril [Vasotec] 20 mg PO BID 08/12/19 06/06/21 History Propranolol HCl [Propranolol HCl 60 mg PO HS 08/12/19 06/06/21 History ER] Simvastatin [Zocor] 20 mg PO Q48H 08/12/19 06/06/21 History Glimepiride [Amaryl] 1 mg PO DAILY 03/14/21 06/06/21 History Multivitamins, Thera [Multivitamin 1 tab PO DAILY 03/14/21 06/06/21 History (formulary)] Oxybutynin Chloride [Ditropan] 5 mg PO HS 03/14/21 06/06/21 History Mirabegron [Myrbetriq] 50 mg PO DAILY 05/27/21 06/06/21 History metFORMIN HCL ER [Glucophage XR] 500 mg PO AC-SUPPER 06/06/21 06/06/21 History Allergies Allergy/AdvReac Type Severity Reaction Status Date / Time Sulfa (Sulfonamide Allergy Severe Rash/Hives Verified 05/27/21 15:20 Antibiotics) sulfamethoxazole Allergy Severe Rash/Hives Verified 05/27/21 15:20 [From Bactrim] trimethoprim [From Bactrim] Allergy Severe Rash/Hives Verified 05/27/21 15:20 Surgical - Exam Vital Signs Temp Pulse Resp BP Pulse Ox 98.1 F 77 18 154/83 93 L 06/06/21 12:39 06/06/21 12:39 06/06/21 12:39 06/06/21 12:39 06/06/21 12:39 Results - Labs 06/06/21 13:02 06/06/21 13:02 Abnormal Lab Results - Last 24 Hours (Table) 06/06/21 06/06/21 06/06/21 Range/Units 13:02 13:02 13:02 Neutrophils # 7.8 H (1.3-7.7) k/uL Lymphocytes # 0.8 L (1.0-4.8) k/uL BUN 28 H (7-17) mg/dL Glucose 168 H (74-99) mg/dL POC Glucose (mg/dL) (75-99) mg/dL AST 75 H (14-36) U/L Creatine Kinase 1439 H* (30-135) U/L Troponin I 1.380 H* (0.000-0.034) ng/mL Ur Specific Mears (1.001-1.035) Urine Ketones (Negative) 06/06/21 06/06/21 06/06/21 Range/Units 13:02 16:13 17:57 Neutrophils # (1.3-7.7) k/uL Lymphocytes # (1.0-4.8) k/uL BUN (7-17) mg/dL Glucose (74-99) mg/dL POC Glucose (mg/dL) 172 H (75-99) mg/dL AST (14-36) U/L Creatine Kinase (30-135) U/L Troponin I 1.580 H* (0.000-0.034) ng/mL Ur Specific Mears 1.042 H (1.001-1.035) Urine Ketones 1+ H (Negative) 06/06/21 06/06/21 Range/Units 18:48 20:18 Neutrophils # (1.3-7.7) k/uL Lymphocytes # (1.0-4.8) k/uL BUN (7-17) mg/dL Glucose (74-99) mg/dL POC Glucose (mg/dL) 176 H (75-99) mg/dL AST (14-36) U/L Creatine Kinase (30-135) U/L Troponin I 1.330 H* (0.000-0.034) ng/mL Ur Specific Mears (1.001-1.035) Urine Ketones (Negative) Diabetes panel 06/06/21 Range/Units 13:02 Sodium 137 (137-145) mmol/L Potassium 4.1 (3.5-5.1) mmol/L Chloride 103 (98-107) mmol/L Carbon Dioxide 26 (22-30) mmol/L BUN 28 H (7-17) mg/dL Creatinine 0.61 (0.52-1.04) mg/dL Glucose 168 H (74-99) mg/dL Calcium 9.8 (8.4-10.2) mg/dL AST 75 H (14-36) U/L ALT 32 (4-34) U/L Alkaline Phosphatase 57 (38-126) U/L Total Protein 7.1 (6.3-8.2) g/dL Albumin 4.2 (3.5-5.0) g/dL Calcium panel 06/06/21 Range/Units 13:02 Calcium 9.8 (8.4-10.2) mg/dL Albumin 4.2 (3.5-5.0) g/dL Pituitary panel 06/06/21 Range/Units 13:02 Sodium 137 (137-145) mmol/L Potassium 4.1 (3.5-5.1) mmol/L Chloride 103 (98-107) mmol/L Carbon Dioxide 26 (22-30) mmol/L BUN 28 H (7-17) mg/dL Creatinine 0.61 (0.52-1.04) mg/dL Glucose 168 H (74-99) mg/dL Calcium 9.8 (8.4-10.2) mg/dL Adrenal panel 06/06/21 Range/Units 13:02 Sodium 137 (137-145) mmol/L Potassium 4.1 (3.5-5.1) mmol/L Chloride 103 (98-107) mmol/L Carbon Dioxide 26 (22-30) mmol/L BUN 28 H (7-17) mg/dL Creatinine 0.61 (0.52-1.04) mg/dL Glucose 168 H (74-99) mg/dL Calcium 9.8 (8.4-10.2) mg/dL Total Bilirubin 0.8 (0.2-1.3) mg/dL AST 75 H (14-36) U/L ALT 32 (4-34) U/L Alkaline Phosphatase 57 (38-126) U/L Total Protein 7.1 (6.3-8.2) g/dL Albumin 4.2 (3.5-5.0) g/dL
[2021-06-07] MEDS: metFORMIN 500 MG TAB PO SCH ×2 (06:30→17:23)
[2021-06-07] MEDS: INSULIN ASPART (NovoLOG) 100 UNIT/ML VIAL SQ SCH ×4 (06:30→20:55)
[2021-06-07 08:32] LABS: African American GFR (CKD) >90 (>60 ml/min/1.73 sqM); Anion Gap 4 mmol/L; Blood Urea Nitrogen 23 mg/dL (7-17); Calcium 8.6 mg/dL (8.4-10.2); Carbon Dioxide 24 mmol/L (22-30); Chloride 104 mmol/L (98-107); Glucose 163 mg/dL (74-99); Non-African American GFR(CKD) >90 (>60 ml/min/1.73 sqM); Potassium 4.6 mmol/L (3.5-5.1); Sodium 132 mmol/L (137-145)
[2021-06-07 08:39] LABS: Creatine Kinase 1323 U/L (30-135)
[2021-06-07] MEDS: NON FORMULARY DRUG (Mirabegron [Myrbetriq] 50 MG Tab.Er.24h) PO SCH (09:43)
[2021-06-07] MEDS: ENOXAPARIN 40 MG/0.4 ML SYRINGE SQ SCH (09:53)
[2021-06-07] MEDS: ASPIRIN 81 MG PO SCH ×2 (09:53→20:54)
[2021-06-07] MEDS: MULTIVITAMINS, THERA 1 EACH TAB PO SCH (09:53)
[2021-06-07] MEDS: ATORVASTATIN 10 MG TAB PO SCH (09:53)
--- NOTE | 2021-06-07 11:07 | P.CRDCN ---
History of Present Illness Consult date: 06/07/21 History of present illness: HISTORY OF PRESENT ILLNESS: This is a 80-year-old female with a past medical history significant for hypertension, hyperlipidemia, diabetes mellitus, and urinary tract infection. Patient states she is to see a credentialing specialist many years ago but no longer follows regularly with 1. She does not remove the name of the credentialing specialist she followed with. She does report that she had a history of atrial flutter many many years ago but is currently not on anticoagulation. She does not recall if she was on anticoagulation in the past. We have been asked to see the patient in consultation for elevated troponins. Patient examined at the bedside. Patient states yesterday she was walking up the stairs when she began to feel her legs getting weak and "shaky". The patient then reports that she fell down approximately 20 stairs. She does not believe she lost consciousness. She states she crawled back up the stairs afterwards and laid on the floor all night until the next morning. She denied feeling any chest pain or pressure prior to this event or so time of my examination. She denies any shortness of breath. S he denies any dizziness or lightheadedness. Denies any nausea or vomiting. EKG reveals sinus mechanism with left axis deviation. No signs of acute ischemia Chest xray left lateral 6/7 and eighth rib fractures without pneumothorax. Some atelectasis may be adjacent. Pelvic x-ray: No acute posttraumatic changes. CT brain and cervical spine: Minimal degenerative spurring in the cervical spine. No fracture. Cerebral atrophy. No acute intracranial abnormalities. Left parietal scalp laceration. CT chest abdomen pelvis: Lower lobe pulmonary infiltrates with pleural fluid. No evidence of pulmonary embolism. Multiple acute right-sided rib fractures. Laboratory data: WBC 9.4. Hemoglobin 13.8. Platelet count 203. Sodium 137. Potassium 4.1. BUN 28. Creatinine 0.61. Creatinine kinase 1439. Troponin 1.380. 1.580. 1.330. Current home cardiac medications include simvastatin 20 mg every 48 hours, propanolol 60 mg at night, enalapril 20 mrem twice a day, and aspirin 81 mg twice a day REVIEW OF SYSTEMS: At the time of my exam: CONSTITUTIONAL: Denies fever or chills. HEENT: Denies blurred vision, vision changes, or eye pain. Denies hemoptysis CARDIOVASCULAR: Denies chest pain. Denies orthopnea. Denies PND. Denies palpitations RESPIRATORY: Denies shortness of breath. GASTROINTESTINAL: Denies abdominal pain. Denies nausea or vomiting. HEMATOLOGIC: Denies bleeding disorders. GENITOURINARY: Denies any blood in urine. SKIN: Denies pruitis. Denies rash. PHYSICAL EXAM: VITAL SIGNS: Reviewed. GENERAL: Well-developed in no acute distress. HEENT: Head is normocephalic. Pupils are equal, round. Sclerae anicteric. Mucous membranes of the mouth are moist. Neck supple. No JVD or thyromegaly LUNGS: Respirations even and unlabored. Lungs diminished bilaterally. HEART: Regular rate and rhythm. S1 and S2 heard. ABDOMEN: Soft. Nondistended. Nontender. EXTREMITIES: Normal range of motion. No clubbing or cyanosis. Peripheral pulses intact. No lower extremity edema NEUROLOGIC: Awake and alert. Oriented x 3. ASSESSMENT: S/P fall, patient does not appear to have had a syncopal episode Multiple acute rib fractures Elevated creatinine kinase Elevated troponin, possible NSTEMI Hypertension Hyperlipidemia Diabetes mellitus History of atrial flutter, type unknown, per patient, not on anticoagulation PLAN: Obtain 2-D echo to assess cardiac structure and function. If any wall motion abnormalities, would consider doing a cardiac catheterization. Otherwise we will continue with conservative management. Nothing by mouth at midnight No IV heparin at this time. Continue with Lovenox Continue aspirin, Lipitor, lisinopril, and propanolol Continue telemetry monitoring to assess for any arrhythmias Further recommendations pending patient's course Nurse practitioner note has been reviewed by physician. Signing provider agrees with the documented findings, assessment, and plan of care. Past Medical History Past Medical History: Diabetes Mellitus, Hypertension Additional Past Medical History / Comment(s): prolapsed bladder with a pessary, UTI History of Any Multi-Drug Resistant Organisms: None Reported Past Surgical History: Adenoidectomy, Orthopedic Surgery, Tonsillectomy Additional Past Surgical History / Comment(s): right shoulder Past Anesthesia/Blood Transfusion Reactions: No Reported Reaction Past Psychological History: No Psychological Hx Reported Smoking Status: Never smoker Past Alcohol Use History: None Reported Past Drug Use History: None Reported Medications and Allergies Home Medications Medication Instructions Recorded Confirmed Type Aspirin EC [Ecotrin Low Dose] 81 mg PO BID 08/12/19 06/06/21 History Enalapril [Vasotec] 20 mg PO BID 08/12/19 06/06/21 History Propranolol HCl [Propranolol HCl 60 mg PO HS 08/12/19 06/06/21 History ER] Simvastatin [Zocor] 20 mg PO Q48H 08/12/19 06/06/21 History Glimepiride [Amaryl] 1 mg PO DAILY 03/14/21 06/06/21 History Multivitamins, Thera [Multivitamin 1 tab PO DAILY 03/14/21 06/06/21 History (formulary)] Oxybutynin Chloride [Ditropan] 5 mg PO HS 03/14/21 06/06/21 History Mirabegron [Myrbetriq] 50 mg PO DAILY 05/27/21 06/06/21 History metFORMIN HCL ER [Glucophage XR] 500 mg PO AC-SUPPER 06/06/21 06/06/21 History Allergies Allergy/AdvReac Type Severity Reaction Status Date / Time Sulfa (Sulfonamide Allergy Severe Rash/Hives Verified 05/27/21 15:20 Antibiotics) sulfamethoxazole Allergy Severe Rash/Hives Verified 05/27/21 15:20 [From Bactrim] trimethoprim [From Bactrim] Allergy Severe Rash/Hives Verified 05/27/21 15:20 Physical Exam Vitals: Vital Signs Temp Pulse Pulse Resp BP BP Pulse Ox 06/07/21 06:57 94 L 06/07/21 03:40 97.7 F 65 15 112/63 98 06/06/21 23:30 98.4 F 71 16 124/70 97 06/06/21 20:12 98.5 F 75 14 123/66 97 06/06/21 17:50 74 18 06/06/21 17:40 98.1 F 74 18 149/73 98 06/06/21 15:00 77 18 150/93 92 L 06/06/21 14:00 73 18 144/69 93 L 06/06/21 13:00 80 18 159/69 94 L 06/06/21 12:39 98.1 F 77 18 154/83 93 L Intake and Output 06/06/21 06/07/21 06/07/21 22:59 06:59 14:59 Intake Total 118 Output Total 1100 300 450 Balance -982 -300 -450 Intake: Oral 118 Output: Urine 1100 300 450 Uretheral (Shaikh) 1100 Other: Voiding Method Indwelling Catheter Indwelling Catheter Weight 58.967 kg 65 kg Results 06/06/21 13:02 06/07/21 07:46 Cardiac Enzymes 06/06/21 06/06/21 06/06/21 Range/Units 13:02 13:02 16:13 AST 75 H (14-36) U/L Troponin I 1.380 H* 1.580 H* (0.000-0.034) ng/mL 06/06/21 Range/Units 18:48 AST (14-36) U/L Troponin I 1.330 H* (0.000-0.034) ng/mL Coagulation 06/06/21 Range/Units 13:02 PT 11.2 (9.0-12.0) sec APTT 23.1 (22.0-30.0) sec CBC 06/06/21 Range/Units 13:02 WBC 9.4 (3.8-10.6) k/uL RBC 4.08 (3.80-5.40) m/uL Hgb 13.8 (11.4-16.0) gm/dL Hct 40.0 (34.0-46.0) % Plt Count 203 (150-450) k/uL Comprehensive Metabolic Panel 06/06/21 Range/Units 13:02 Sodium 137 (137-145) mmol/L Potassium 4.1 (3.5-5.1) mmol/L Chloride 103 (98-107) mmol/L Carbon Dioxide 26 (22-30) mmol/L BUN 28 H (7-17) mg/dL Creatinine 0.61 (0.52-1.04) mg/dL Glucose 168 H (74-99) mg/dL Calcium 9.8 (8.4-10.2) mg/dL AST 75 H (14-36) U/L ALT 32 (4-34) U/L Alkaline Phosphatase 57 (38-126) U/L Total Protein 7.1 (6.3-8.2) g/dL Albumin 4.2 (3.5-5.0) g/dL Current Medications Generic Name Dose Route Start Last Admin Trade Name Freq PRN Reason Stop Dose Admin Aspirin 81 mg 06/06/21 21:00 06/06/21 20:40 Aspirin 81 Mg PO 81 mg BID RONNI Administration Atorvastatin Calcium 10 mg 06/07/21 09:00 Atorvastatin 10 Mg Tab PO Q48H RONNI Insulin Aspart 0 unit 06/06/21 17:30 06/07/21 06:30 Insulin Aspart (Novolog) 100 Unit/Ml Vial SQ 06/13/21 17:31 Not Given ACHS RONNI Protocol Lisinopril 40 mg 06/06/21 21:00 06/06/21 20:40 Lisinopril 20 Mg Tab PO 40 mg BID RONNI Administration Metformin HCl 250 mg 06/06/21 17:30 06/07/21 06:30 Metformin 500 Mg Tab PO 250 mg BID-W/MEALS RONNI Administration Morphine Sulfate 4 mg 06/06/21 15:23 06/07/21 03:51 Morphine Sulfate 4 Mg/Ml Syringe IVP 4 mg Q4H PRN Administration Pain Multivitamins 1 each 06/07/21 09:00 Multivitamins, Thera 1 Each Tab PO DAILY RONNI Non-Formulary Medication 50 mg 06/07/21 09:00 Mirabegron [Myrbetriq] PO DAILY RONNI Oxybutynin Chloride 5 mg 06/06/21 21:00 06/06/21 20:40 Oxybutynin Chloride 5 Mg Tab PO 5 mg HS RONNI Administration Propranolol HCl 60 mg 06/06/21 21:00 06/06/21 20:40 Propranolol La 60 Mg Cap.Sa.24h PO 60 mg HS RONNI Administration Intake and Output 06/06/21 06/07/21 06/07/21 22:59 06:59 14:59 Intake Total 118 Output Total 1100 300 450 Balance -982 -300 -450 Intake: Oral 118 Output: Urine 1100 300 450 Uretheral (Shaikh) 1100 Other: Voiding Method Indwelling Catheter Indwelling Catheter Weight 58.967 kg 65 kg 06/06/21 13:02 06/06/21 13:02
--- NOTE | 2021-06-07 11:13 | P.CNPUL ---
History of Present Illness Consult date: 06/07/21 Requesting physician: Annette Jordan Reason for consult: abnormal CXR/CT, other Chief complaint: Status post fall, with right-sided rib fractures. History of present illness: Pulmonary/critical care consultation dated 06/07/2021. This is an 80-year-old female that had a fall at home. She has a history of diabetes, hypertension, and urinary tract infection. The patient apparently fell down a flight of stairs. There was no loss of consciousness. The patient complained of pain in the right chest and back area. X-rays revealed fractured ribs on the right side. She did have old fractured ribs on the left side, and she admits that maybe she fell in the past as well. She denies any shortness of breath. She does complain of pain with deep inspiration. She denies any cough or phlegm production. No fever or chills. The patient has a history of diabetes mellitus, hypertension, prolapsed bladder, and urinary tract infection. Labs reveal a white count of 9.4, hemoglobin 13.8, hematocrit 40, platelet count 203,000. PT, INR, and PTT were normal. Sodium 132, potassium 4.6, chlorides 104, CO2 24, anion gap 4, BUN 23, and creatinine 0.5. CKs were 1439 and 1323. Troponin is 1.330. CT of the chest showed no evidence of pulmonary embolism. There were multiple right-sided rib fractures including ribs 3, 4, and 5. There is some chronic old rib fractures in the left lower lung area. Currently, the patient's resting comfortably. She is on a couple liters of oxygen. Review of Systems REVIEW OF SYSTEMS: CONSTITUTIONAL: [Negative.] NEUROLOGIC: [ Negative.] HEENT: [ Negative.] CARDIAC: [Negative.] PULMONARY: Right posterior chest discomfort. GI: [Negative.] : [Negative.] RHEUMATOLOGIC: [ Negative.] IMMUNOLOGIC: [ Negative.] ENDOCRINE: [Negative. ] DERMATOLOGIC: [Negative.] Past Medical History Past Medical History: Diabetes Mellitus, Hypertension Additional Past Medical History / Comment(s): prolapsed bladder with a pessary, UTI History of Any Multi-Drug Resistant Organisms: None Reported Past Surgical History: Adenoidectomy, Orthopedic Surgery, Tonsillectomy Additional Past Surgical History / Comment(s): right shoulder Past Anesthesia/Blood Transfusion Reactions: No Reported Reaction Past Psychological History: No Psychological Hx Reported Smoking Status: Never smoker Past Alcohol Use History: None Reported Past Drug Use History: None Reported Medications and Allergies Home Medications Medication Instructions Recorded Confirmed Type Aspirin EC [Ecotrin Low Dose] 81 mg PO BID 08/12/19 06/06/21 History Enalapril [Vasotec] 20 mg PO BID 08/12/19 06/06/21 History Propranolol HCl [Propranolol HCl 60 mg PO HS 08/12/19 06/06/21 History ER] Simvastatin [Zocor] 20 mg PO Q48H 08/12/19 06/06/21 History Glimepiride [Amaryl] 1 mg PO DAILY 03/14/21 06/06/21 History Multivitamins, Thera [Multivitamin 1 tab PO DAILY 03/14/21 06/06/21 History (formulary)] Oxybutynin Chloride [Ditropan] 5 mg PO HS 03/14/21 06/06/21 History Mirabegron [Myrbetriq] 50 mg PO DAILY 05/27/21 06/06/21 History metFORMIN HCL ER [Glucophage XR] 500 mg PO AC-SUPPER 06/06/21 06/06/21 History Allergies Allergy/AdvReac Type Severity Reaction Status Date / Time Sulfa (Sulfonamide Allergy Severe Rash/Hives Verified 05/27/21 15:20 Antibiotics) sulfamethoxazole Allergy Severe Rash/Hives Verified 05/27/21 15:20 [From Bactrim] trimethoprim [From Bactrim] Allergy Severe Rash/Hives Verified 05/27/21 15:20 Physical Exam Osteopathic Statement: *. No significant issues noted on an osteopathic structural exam other than those noted in the History and Physical/Consult. Vitals: Vital Signs Temp Pulse Pulse Resp BP BP Pulse Ox 06/07/21 08:00 98.1 F 62 18 121/77 93 L 06/07/21 06:57 94 L 06/07/21 03:40 97.7 F 65 15 112/63 98 06/06/21 23:30 98.4 F 71 16 124/70 97 06/06/21 20:12 98.5 F 75 14 123/66 97 06/06/21 17:50 74 18 06/06/21 17:40 98.1 F 74 18 149/73 98 06/06/21 15:00 77 18 150/93 92 L 06/06/21 14:00 73 18 144/69 93 L 06/06/21 13:00 80 18 159/69 94 L 06/06/21 12:39 98.1 F 77 18 154/83 93 L Intake and Output 06/06/21 06/07/21 06/07/21 22:59 06:59 14:59 Intake Total 118 Output Total 1100 300 900 Balance -982 -300 -900 Intake: Oral 118 Output: Urine 1100 300 900 Uretheral (Shaikh) 1100 Other: Voiding Method Indwelling Catheter Indwelling Catheter Indwelling Catheter Weight 58.967 kg 65 kg No acute distress, oriented 3. Currently on 3 L nasal cannula. HEENT examination is grossly unremarkable. Neck supple. Full range of motion. No adenopathy thyromegaly or neck vein distention. Cardiovascular examination reveals regular rhythm rate. S1-S2 normal. No S3 or S4. No discernible murmur noted. Heart sounds are distant. Heart rate 62 bpm. Lungs reveal clear breath sounds. Breath sounds are equal bilaterally. No adventitious lung sounds including wheezes rhonchi or crackles. Slight pain with deep inspiration. Abdomen soft bowel sounds are heard. No masses or tenderness. Extremities are intact. No cyanosis clubbing or edema. Skin is without rash or lesion. Neurologic examination is brief but nonfocal. Results - Laboratory Findings CBC and BMP: 06/06/21 13:02 06/07/21 07:46 PT/INR, D-dimer PT 11.2 sec (9.0-12.0) 06/06/21 13:02 INR 1.1 (<1.2) 06/06/21 13:02 Abnormal lab findings: Abnormal Labs 06/06/21 06/06/21 06/06/21 13:02 13:02 13:02 Neutrophils # 7.8 H Lymphocytes # 0.8 L Sodium BUN 28 H Creatinine Glucose 168 H POC Glucose (mg/dL) AST 75 H Creatine Kinase 1439 H* Troponin I 1.380 H* Ur Specific [place] Urine Ketones 06/06/21 06/06/21 06/06/21 13:02 16:13 17:57 Neutrophils # Lymphocytes # Sodium BUN Creatinine Glucose POC Glucose (mg/dL) 172 H AST Creatine Kinase Troponin I 1.580 H* Ur Specific [place] 1.042 H Urine Ketones 1+ H 06/06/21 06/06/21 06/07/21 18:48 20:18 06:21 Neutrophils # Lymphocytes # Sodium BUN Creatinine Glucose POC Glucose (mg/dL) 176 H 148 H AST Creatine Kinase Troponin I 1.330 H* Ur Specific [place] Urine Ketones 06/07/21 07:46 Neutrophils # Lymphocytes # Sodium 132 L BUN 23 H Creatinine 0.50 L Glucose 163 H POC Glucose (mg/dL) AST Creatine Kinase 1323 H* Troponin I Ur Specific [place] Urine Ketones - Diagnostic Findings Chest x-ray: image reviewed CT scan - chest: image reviewed Assessment and Plan Assessment: Status post fall, with rib fractures on the right side, including rib 3, 4, and 5. No obvious respiratory compromise at this time. History of hypertension. History of diabetes. History of urinary tract infection. History of bladder prolapse. Prior history of old left rib fractures. Plan: Plan dated 06/07/2021. We recommend deep breathing, coughing, and clearing of secretions. We also recommend hourly use of the incentive spirometer. In addition, the patient should have adequate pain control, but not too much pain medication that makes her sleepy. We will continue to follow. In my opinion, the patient could be considered for discharge in the near future. Additional recommendations and suggestions are forthcoming. Time with Patient: Greater than 30
[2021-06-07 11:40] LABS: Glucose,Whole Blood 248 mg/dL (75-99)
--- NOTE | 2021-06-07 12:15 | ECHOF ---
Referral Reason:Elevated troponin MEASUREMENTS -------- HEIGHT: 160.0 cm WEIGHT: 59.0 kg BP: 112/63 RVIDd: 2.5 cm (< 3.3) IVSd: 0.8 cm (0.6 - 1.1) LVIDd: 3.4 cm (3.9 - 5.3) LVPWd: 0.9 cm (0.6 - 1.1) IVSs: 1.5 cm LVIDs: 1.0 cm LVPWs: 1.3 cm LAESV Index (A-L): 35.30 ml/m Ao Diam: 3.2 cm (2.0 - 3.7) AV Cusp: 1.8 cm (1.5 - 2.6) LA Diam: 3.0 cm (2.7 - 3.8) MV EXCURSION: 11.800 mm (> 18.000) MV EF SLOPE: 59 mm/s (70 - 150) EPSS: 0.7 cm MV E Manny: 0.81 m/s MV DecT: 252 ms MV A Manny: 0.79 m/s MV E/A Ratio: 1.03 RAP: 5.00 mmHg RVSP: 11.44 mmHg FINDINGS -------- This was a technically good study. The left ventricular size is normal. Left ventricular wall thickness is normal. Overall left vent ricular systolic function is normal with, an EF between 55 - 60 %. The right ventricle is normal in size. LA is moderately dilated 34-39 ml/m2 The right atrial size is normal. The aortic valve is trileaflet and appears structurally normal. The mitral valve is normal. Mild mitral regurgitation is present. The tricuspid valve appears structurally normal. Mild tricuspid regurgitation present. Right vent ricular systolic pressure is normal at < 35 mmHg. There is no pulmonic regurgitation present. The aortic root size is normal. Normal inferior vena cava with normal inspiratory collapse consistent with estimated right atrial pre ssure of 5 mmHg. There is no pericardial effusion. CONCLUSIONS -------- 1. The left ventricular size is normal. 2. Left ventricular wall thickness is normal. 3. Overall left ventricular systolic function is normal with, an EF between 55 - 60 %. 4. 5. LA is moderately dilated 34-39 ml/m2 6. Mild mitral regurgitation is present. 7. Mild tricuspid regurgitation present. 8. There is no pericardial effusion. [employer]: Dana Pyle RDCS
[2021-06-07] MEDS: SODIUM CHLORIDE 0.9% 1,000 ML IV SCH ×2 (14:00→22:56)
--- NOTE | 2021-06-07 14:23 | P.PN ---
Subjective Progress Note Date: 06/07/21 This is an 80-year-old female with admitted with near syncope, status post fall down 15 stairs, sustaining multiple rib fractures, elevated troponin, elevated CK and multiple other medical issues. Anticoagulated on Lovenox. Evaluated by cardiology. Echo completed reporting normal LV function, EF 55-60%, and a moderately dilated. Denies chest pain, shortness of breath. Reports sore back- no bruising at this time. Maintained on IV fluid hydration, CK decreased from 1439 to 1323. Renal function stable.Sodium decreased to 132. Maintaining O2 sat in the 90s on 3 L nasal cannula. Afebrile. Accu-Cheks in the 160s. Objective - Vital Signs Vital signs: Vital Signs Temp 98.1 F 06/07/21 08:00 Pulse 65 06/07/21 08:00 Resp 18 06/07/21 08:00 BP 121/77 06/07/21 08:00 Pulse Ox 93 L 06/07/21 08:00 Intake & Output 06/06/21 06/07/21 06/07/21 18:59 06:59 18:59 Intake Total 118 Output Total 1100 300 900 Balance -982 -300 -900 Weight 58.967 kg 65 kg Intake: Oral 118 Output: Urine 1100 300 900 Uretheral (Shaikh) 1100 Other: Voiding Method Indwelling Catheter Indwelling Catheter Indwelling Catheter - Exam PHYSICAL EXAM: VITAL SIGNS: As above GENERAL: Sitting up in bed, no acute distress HEENT: Conjunctivae normal. eyes normal. NECK: No JVD. No thyroid enlargement. No LNs CARDIOVASCULAR: S1, S2 regular. No murmur RESPIRATION: Breath sounds diminished in the bases. No rhonchi or crackles. No bronchial breathing. Tender rib cages and back, mild pain with deep inspiration. ABDOMEN: Soft, nontender . No guarding. no masses palpable. No ascites, No hepatosplenomegaly.Bowel sounds heard. LEGS: No edema. no swelling PSYCHIATRY: Alert and oriented X3, mood and affect normal. NERVOUS SYSTEM: Cranial N 2-12 grossly normal. Moves all 4 limbs. Diffuse weakness, No focal deficits. Strength and sensation grossly intact.. Skin: Warm and dry, no rash - Labs CBC & Chem 7: 06/06/21 13:02 06/07/21 07:46 Labs: Abnormal Lab Results - Last 24 Hours (Table) 06/06/21 06/06/21 06/06/21 Range/Units 13:02 13:02 13:02 Neutrophils # 7.8 H (1.3-7.7) k/uL Lymphocytes # 0.8 L (1.0-4.8) k/uL Sodium (137-145) mmol/L BUN 28 H (7-17) mg/dL Creatinine (0.52-1.04) mg/dL Glucose 168 H (74-99) mg/dL POC Glucose (mg/dL) (75-99) mg/dL AST 75 H (14-36) U/L Creatine Kinase 1439 H* (30-135) U/L Troponin I 1.380 H* (0.000-0.034) ng/mL Ur Specific [place] (1.001-1.035) Urine Ketones (Negative) 06/06/21 06/06/21 06/06/21 Range/Units 13:02 16:13 17:57 Neutrophils # (1.3-7.7) k/uL Lymphocytes # (1.0-4.8) k/uL Sodium (137-145) mmol/L BUN (7-17) mg/dL Creatinine (0.52-1.04) mg/dL Glucose (74-99) mg/dL POC Glucose (mg/dL) 172 H (75-99) mg/dL AST (14-36) U/L Creatine Kinase (30-135) U/L Troponin I 1.580 H* (0.000-0.034) ng/mL Ur Specific [place] 1.042 H (1.001-1.035) Urine Ketones 1+ H (Negative) 06/06/21 06/06/21 06/07/21 Range/Units 18:48 20:18 06:21 Neutrophils # (1.3-7.7) k/uL Lymphocytes # (1.0-4.8) k/uL Sodium (137-145) mmol/L BUN (7-17) mg/dL Creatinine (0.52-1.04) mg/dL Glucose (74-99) mg/dL POC Glucose (mg/dL) 176 H 148 H (75-99) mg/dL AST (14-36) U/L Creatine Kinase (30-135) U/L Troponin I 1.330 H* (0.000-0.034) ng/mL Ur Specific [place] (1.001-1.035) Urine Ketones (Negative) 06/07/21 Range/Units 07:46 Neutrophils # (1.3-7.7) k/uL Lymphocytes # (1.0-4.8) k/uL Sodium 132 L (137-145) mmol/L BUN 23 H (7-17) mg/dL Creatinine 0.50 L (0.52-1.04) mg/dL Glucose 163 H (74-99) mg/dL POC Glucose (mg/dL) (75-99) mg/dL AST (14-36) U/L Creatine Kinase 1323 H* (30-135) U/L Troponin I (0.000-0.034) ng/mL Ur Specific [place] (1.001-1.035) Urine Ketones (Negative) Assessment and Plan Assessment: Near-syncope, status post fall Multiple acute right-sided rib fractures, 3,4 and 5,secondary to fall. Chronic left lateral rib fractures. NSTEMI, cardiology following Acute rhabdomyolysis, on floor overnight status post fall Diabetes mellitus, uncontrolled, hyperglycemic Hypertension Hyperlipidemia Plan: Continue on current medication regime ,monitoring and symptomatic treatment. Maintain gentle IV fluid hydration. Aggressive pulmonary toileting with incentive spirometer reinforced, as patient is high risk for Pneumonia. Consistent carb. Diet to be initiated once evaluated by cardiology. Pulmonary consult in place, recommendations pending. PT/OT consulted. Subacute rehab at discharge. Social work consulted. Discharge planning in progress. The impression and plan of care has been dictated as directed. : I performed a history and examination of this patient, discussed the same with the dictator. I agree with the dictator's note ,documented as a scribe. Any additional findings or plans will be noted.
--- NOTE | 2021-06-07 15:28 | P.PN ---
Subjective Progress Note Date: 06/07/21 CHIEF COMPLAINT: Fall down flight of stairs HISTORY OF PRESENT ILLNESS: Trauma service is following regards to patient's fall. She has multiple right-sided rib fractures. Patient reports pain only with movement. Pain service is following her as well as pulmonary service. She's sitting in bed comfortably. Afebrile WBC 9.4 hemoglobin 13.8 creatinine 0.50 elevated CPK level patient had a history of urinary tract infection. Prior history of old left rib fracture PHYSICAL EXAM: VITAL SIGNS: Reviewed GENERAL: Well-developed in no acute distress. HEENT: No sclera icterus. Extraocular movements grossly intact. Moist buccal mucosa. Head is atraumatic, normocephalic. Hears conversational speech. No nasal drainage. NECK: Supple without lymphadenopathy. CHEST: Non-labored respirations and equal bilateral excursions. CARDIOVASCULAR: Palpable 2+ radial pulses. ABDOMEN: Soft. Nondistended. Nontender. MUSCULOSKELETAL: No clubbing or cyanosis. NEUROLOGIC: No focal or lateralizing signs. Cranial nerves II through XII grossly intact. PSYCH: Appropriate affect. Alert and oriented to person, place and time. SKIN: Well perfused. Good skin turgor. ASSESSMENT: 1. Status post fall with rib fractures on the right side including ribs 3, 4 and 5 2. Elevated troponins being followed by cardiology 3. Diabetes mellitus 4. Hypertension PLAN: -Continue pain medication as needed -Continue PT OT -Continue incentive spirometer use and deep breathing exercises -Continue supportive care Physician Quitline Counselor note has been reviewed by physician. Signing provider agrees with the documented findings, assessment, and plan of care. Objective - Vital Signs Vital signs: Vital Signs Temp 98 F 06/07/21 12:00 Pulse 67 06/07/21 13:47 Resp 18 06/07/21 13:47 BP 107/61 06/07/21 12:00 Pulse Ox 98 06/07/21 12:00 Intake & Output 06/06/21 06/07/21 06/07/21 18:59 06:59 18:59 Intake Total 118 368 Output Total 1100 300 900 Balance -982 -300 -532 Weight 58.967 kg 65 kg Intake: Oral 118 368 Output: Urine 1100 300 900 Uretheral (Shaikh) 1100 Other: Voiding Method Indwelling Catheter Indwelling Catheter Indwelling Catheter - Labs CBC & Chem 7: 06/06/21 13:02 06/07/21 07:46 Labs: Abnormal Lab Results - Last 24 Hours (Table) 06/06/21 06/06/21 06/06/21 Range/Units 13:02 16:13 17:57 Sodium (137-145) mmol/L BUN (7-17) mg/dL Creatinine (0.52-1.04) mg/dL Glucose (74-99) mg/dL POC Glucose (mg/dL) 172 H (75-99) mg/dL Creatine Kinase (30-135) U/L Troponin I 1.580 H* (0.000-0.034) ng/mL Ur Specific [place] 1.042 H (1.001-1.035) Urine Ketones 1+ H (Negative) 06/06/21 06/06/21 06/07/21 Range/Units 18:48 20:18 06:21 Sodium (137-145) mmol/L BUN (7-17) mg/dL Creatinine (0.52-1.04) mg/dL Glucose (74-99) mg/dL POC Glucose (mg/dL) 176 H 148 H (75-99) mg/dL Creatine Kinase (30-135) U/L Troponin I 1.330 H* (0.000-0.034) ng/mL Ur Specific [place] (1.001-1.035) Urine Ketones (Negative) 06/07/21 06/07/21 Range/Units 07:46 11:38 Sodium 132 L (137-145) mmol/L BUN 23 H (7-17) mg/dL Creatinine 0.50 L (0.52-1.04) mg/dL Glucose 163 H (74-99) mg/dL POC Glucose (mg/dL) 248 H (75-99) mg/dL Creatine Kinase 1323 H* (30-135) U/L Troponin I (0.000-0.034) ng/mL Ur Specific [place] (1.001-1.035) Urine Ketones (Negative)
[2021-06-07] MEDS: ACETAMINOPHEN TAB 325 MG TAB PO PRN (15:56)
[2021-06-07 16:17] LABS: Chol/HDL Ratio 2.79; Cholesterol 109 mg/dL (0-200); LDL Cholesterol,Calculated 56.2 mg/dL (0.0-131.0)
[2021-06-07 16:51] LABS: Glucose,Whole Blood 136 mg/dL (75-99)
[2021-06-07 20:14] LABS: Glucose,Whole Blood 271 mg/dL (75-99)
[2021-06-07] MEDS: lisinopriL 20 MG TAB PO SCH ×2 (20:35→20:54)
[2021-06-07] MEDS: OXYBUTYNIN CHLORIDE 5 MG TAB PO SCH (20:54)
[2021-06-07] MEDS: PROPRANOLOL LA 60 MG CAP.SA.24H PO SCH (20:54)
[2021-06-07 22:47] LABS: Hemoglobin A1C 6.4 % (4.0-6.0)
[2021-06-08] MEDS: metFORMIN 500 MG TAB PO SCH ×2 (06:19→17:38)
[2021-06-08 06:31] LABS: Glucose,Whole Blood 120 mg/dL (75-99)
[2021-06-08] MEDS: INSULIN ASPART (NovoLOG) 100 UNIT/ML VIAL SQ SCH ×4 (06:33→20:28)
[2021-06-08] MEDS: NON FORMULARY DRUG (Mirabegron [Myrbetriq] 50 MG Tab.Er.24h) PO SCH (09:16)
[2021-06-08] MEDS: MULTIVITAMINS, THERA 1 EACH TAB PO SCH (09:17)
[2021-06-08] MEDS: lisinopriL 20 MG TAB PO SCH ×2 (09:17→20:28)
[2021-06-08] MEDS: ACETAMINOPHEN TAB 325 MG TAB PO PRN ×2 (09:17→22:51)
[2021-06-08] MEDS: ENOXAPARIN 40 MG/0.4 ML SYRINGE SQ SCH ×2 (09:20→12:52)
[2021-06-08] MEDS: ASPIRIN 81 MG PO SCH ×2 (09:20→20:27)
[2021-06-08 09:30] LABS: Basophils % (A) 1 %; Eosinophils # (A) 0.1 k/uL (0-0.7); Eosinophils % (A) 1 %; HCT 34.2 % (34.0-46.0); HGB 11.6 gm/dL (11.4-16.0); Lymphocytes # (A) 0.9 k/uL (1.0-4.8); Lymphocytes % (A) 12 %; MCH 33.4 pg (25.0-35.0); MCHC 33.8 g/dL (31.0-37.0); MCV 98.8 fL (80.0-100.0); Mean Platelet Volume 7.7; Monocytes # (A) 0.5 k/uL (0-1.0); Monocytes % (A) 6 %; Neutrophils % (A) 78 %; Platelet Count 146 k/uL (150-450); RBC 3.46 m/uL (3.80-5.40); RDW 12.6 % (11.5-15.5); WBC 7.7 k/uL (3.8-10.6)
[2021-06-08 09:50] LABS: African American GFR (CKD) >90 (>60 ml/min/1.73 sqM); Anion Gap 7 mmol/L; Blood Urea Nitrogen 14 mg/dL (7-17); Calcium 8.4 mg/dL (8.4-10.2); Carbon Dioxide 22 mmol/L (22-30); Chloride 104 mmol/L (98-107); Glucose 130 mg/dL (74-99); Non-African American GFR(CKD) >90 (>60 ml/min/1.73 sqM); Potassium 4.2 mmol/L (3.5-5.1); Sodium 133 mmol/L (137-145)
[2021-06-08 09:52] LABS: Creatine Kinase 1127 U/L (30-135)
--- NOTE | 2021-06-08 09:58 | P.PN ---
Subjective Progress Note Date: 06/08/21 Principal diagnosis: Trauma, status post fall, right-sided rib fractures This is an 80-year-old female that had a fall at home. She has a history of diabetes, hypertension, and urinary tract infection. The patient apparently fell down a flight of stairs. There was no loss of consciousness. The patient complained of pain in the right chest and back area. X-rays revealed fractured ribs on the right side. She did have old fractured ribs on the left side, and she admits that maybe she fell in the past as well. She denies any shortness of breath. She does complain of pain with deep inspiration. She denies any cough or phlegm production. No fever or chills. The patient has a history of diabetes mellitus, hypertension, prolapsed bladder, and urinary tract infection. Labs reveal a white count of 9.4, hemoglobin 13.8, hematocrit 40, platelet count 203,000. PT, INR, and PTT were normal. Sodium 132, potassium 4.6, chlorides 104, CO2 24, anion gap 4, BUN 23, and creatinine 0.5. CKs were 1439 and 1323. Troponin is 1.330. CT of the chest showed no evidence of pulmonary embolism. There were multiple right-sided rib fractures including ribs 3, 4, and 5. There is some chronic old rib fractures in the left lower lung area. Currently, the patient's resting comfortably. She is on a couple liters of oxygen. The patient is seen today 06/08/2021 in follow-up on the selective care unit. She is currently sitting up in bed. Awake and alert in no acute distress. No worsening shortness of breath, cough or congestion. Her pain is controlled from her right-sided rib fractures. She is working well with the incentive spirometer. She maintain O2 saturations in the mid 90s on room air. White count 7.7. Hemoglobin 11.6. Platelets 146. Sodium 133. Potassium 4.2. Creatinine 0.45. Creatinine kinase 1127. Echocardiogram reveals preserved left ventricular systolic function with ejection fraction 55-60%. Objective - Vital Signs Vital signs: Vital Signs Temp 98.4 F 06/08/21 03:33 Pulse 62 06/08/21 03:33 Resp 17 06/08/21 03:33 BP 112/63 06/08/21 03:33 Pulse Ox 95 06/08/21 03:33 Intake & Output 06/07/21 06/08/21 06/08/21 18:59 06:59 18:59 Intake Total 608 540 Output Total 1650 1175 Balance -1042 -635 Weight 62.5 kg Intake: Oral 608 540 Output: Urine 1650 1175 Other: Voiding Method Indwelling Catheter Indwelling Catheter - Exam Very pleasant 80-year-old female patient. On room air. No acute distress, oriented 3. HEENT examination is grossly unremarkable. Neck supple. Full range of motion. No adenopathy thyromegaly or neck vein distention. Cardiovascular examination reveals regular rhythm rate. S1-S2 normal. No S3 or S4. No discernible murmur noted. Heart sounds are distant. Heart rate 62 bpm. Lungs reveal clear breath sounds. Breath sounds are equal bilaterally. No adventitious lung sounds including wheezes rhonchi or crackles. Slight pain with deep inspiration. Abdomen soft bowel sounds are heard. No masses or tenderness. Extremities are intact. No cyanosis clubbing or edema. Skin is without rash or lesion. Neurologic examination is brief but nonfocal. - Labs CBC & Chem 7: 06/08/21 08:17 06/07/21 07:46 Labs: Abnormal Lab Results - Last 24 Hours (Table) 06/07/21 06/07/21 06/07/21 Range/Units 07:46 11:38 13:10 RBC (3.80-5.40) m/uL Plt Count (150-450) k/uL Lymphocytes # (1.0-4.8) k/uL POC Glucose (mg/dL) 248 H (75-99) mg/dL Hemoglobin A1c 6.4 H (4.0-6.0) % HDL Cholesterol 39.0 L (40.0-60.0) mg/dL 06/07/21 06/07/21 06/08/21 Range/Units 16:48 20:13 06:30 RBC (3.80-5.40) m/uL Plt Count (150-450) k/uL Lymphocytes # (1.0-4.8) k/uL POC Glucose (mg/dL) 136 H 271 H 120 H (75-99) mg/dL Hemoglobin A1c (4.0-6.0) % HDL Cholesterol (40.0-60.0) mg/dL 06/08/21 Range/Units 08:17 RBC 3.46 L (3.80-5.40) m/uL Plt Count 146 L (150-450) k/uL Lymphocytes # 0.9 L (1.0-4.8) k/uL POC Glucose (mg/dL) (75-99) mg/dL Hemoglobin A1c (4.0-6.0) % HDL Cholesterol (40.0-60.0) mg/dL Assessment and Plan Assessment: 1 Status post fall, with rib fractures on the right side, including rib 3, 4, and 5. 2 No obvious respiratory compromise at this time. 3 History of hypertension. 4 History of diabetes. 5 History of urinary tract infection. 6 History of bladder prolapse. 7 Prior history of old left rib fractures. Plan: The patient was seen and evaluated by Dr. Negrete She is stable from the pulmonary standpoint Cleared for discharge Continue to work with her incentive spirometer Follow-up in the office in 1-2 weeks' I, the cosigning physician, performed a history & physical examination of the patient. Lungs sounds are clear. Maintaining good O2 saturations in the 90s on room air. I discussed the assessment and plan of care with my nurse practitioner, Alem Ramirez. I attest to the above note as dictated by her.
--- NOTE | 2021-06-08 10:22 | P.DS ---
Providers Date of admission: 06/06/21 15:23 Expected date of discharge: 06/08/21 Attending physician: Marques Nance MD Consults: 06/06/21 15:23 Consult Physician Routine Consulting Provider: [facility] Consult Reason/Comments: near syncope, elevated troponin Do you want consulting provider notified?: Yes Consult Physician Routine Consulting Provider: Kristin Hoover Consult Reason/Comments: fall, multiple rib fractures Do you want consulting provider notified?: Yes 06/06/21 15:26 Consult Physician Routine Consulting Provider: Tee Ricks Consult Reason/Comments: pulmonary infiltrates, pleural fluid Do you want consulting provider notified?: Yes 06/07/21 08:26 Consult Physician Routine Consulting Provider: Anesthesia,Services Consult Reason/Comments: pain management, rib fractures Do you want consulting provider notified?: Yes Primary care physician: Catherine Nance [facility] Course: Final Diagnoses: Near-syncope, status post fall Multiple acute right-sided rib fractures, 3,4 and 5,secondary to fall. Chronic left lateral rib fractures. NSTEMI, cardiology following Acute rhabdomyolysis, on floor overnight status post fall Diabetes mellitus, uncontrolled, hyperglycemic Hypertension Hyperlipidemia Hospital course:This is an 80-year-old female with admitted with near syncope, status post fall down 15 stairs, sustaining multiple rib fractures, elevated troponin, elevated CK and multiple other medical issues. Anticoagulated on Lovenox. Evaluated by cardiology. Echo completed reporting normal LV function, EF 55-60%, and a moderately dilated. Denies chest pain, shortness of breath. Reports sore back-no bruising at this time. Maintained on IV fluid hydration, CK decreased from 1439 to 1323. Renal function stable.Sodium decreased to 132. Maintaining O2 sat in the 90s on 3 L nasal cannula. Afebrile. Accu-Cheks in the 160s. Significant clinical improvement, renal function stable, CK further decrease to 1127. Sodium 133. Afebrile, normal WBC, hemoglobin 11.6, platelets 146. Pain controlled. Denies lightheadedness or dizziness. Denies chest pain, palpitations or shortness of breath. Aggressive pulmonary toileting with incentive spirometer every hour 10 to continue at discharge. Echocardiogram reported preserved LV function, EF 55-60%. Cleared by pulmonary for discharge. Patient will be discharged to subacute rehab., in a stable condition with guarded prognosis pending clearance from general surgery. - Exam PHYSICAL EXAM: VITAL SIGNS: Reviewed GENERAL: Alert and oriented 3, Sitting up in bed, no acute distress HEENT: Conjunctivae normal. eyes normal. CARDIOVASCULAR: S1, S2 regular. No murmur RESPIRATION: Breath sounds diminished in the bases. No rhonchi or crackles. ABDOMEN: Soft, nontender . No guarding. no masses palpable. Bowel sounds heard. LEGS: No edema. no swelling NERVOUS SYSTEM: Cranial N 2-12 grossly normal. Moves all 4 limbs. Diffuse weakness, No focal deficits. The impression and plan of care has been dictated as directed. : I performed a history and examination of this patient, discussed the same with the dictator. I agree with the dictator's note ,documented as a scribe. Any additional findings or plans will be noted. Patient Condition at Discharge: Stable Plan - Discharge Summary Discharge Rx Participant: No New Discharge Prescriptions: New INSULIN LISPRO (HumaLOG) [humaLOG] 0 unit SQ ACHS #1 vial Enoxaparin [Lovenox] 40 mg SQ DAILY #7 syringe Acetaminophen Tab [Tylenol] 650 mg PO Q6HR PRN tab PRN Reason: Fever And/ Or Pain Continue Aspirin EC [Ecotrin Low Dose] 81 mg PO BID Simvastatin [Zocor] 20 mg PO Q48H Propranolol HCl [Propranolol HCl ER] 60 mg PO HS Enalapril [Vasotec] 20 mg PO BID Multivitamins, Thera [Multivitamin (formulary)] 1 tab PO DAILY metFORMIN HCL ER [Glucophage XR] 500 mg PO AC-SUPPER Oxybutynin Chloride [Ditropan] 5 mg PO HS Glimepiride [Amaryl] 1 mg PO DAILY Mirabegron [Myrbetriq] 50 mg PO DAILY Discharge Medication List Aspirin EC [Ecotrin Low Dose] 81 mg PO BID 08/12/19 [History] Enalapril [Vasotec] 20 mg PO BID 08/12/19 [History] Propranolol HCl [Propranolol HCl ER] 60 mg PO HS 08/12/19 [History] Simvastatin [Zocor] 20 mg PO Q48H 08/12/19 [History] Glimepiride [Amaryl] 1 mg PO DAILY 03/14/21 [History] Multivitamins, Thera [Multivitamin (formulary)] 1 tab PO DAILY 03/14/21 [History] Oxybutynin Chloride [Ditropan] 5 mg PO HS 03/14/21 [History] Mirabegron [Myrbetriq] 50 mg PO DAILY 05/27/21 [History] metFORMIN HCL ER [Glucophage XR] 500 mg PO AC-SUPPER 06/06/21 [History] Acetaminophen Tab [Tylenol] 650 mg PO Q6HR PRN tab 06/08/21 [Rx] Enoxaparin [Lovenox] 40 mg SQ DAILY #7 syringe 06/08/21 [Rx] INSULIN LISPRO (HumaLOG) [humaLOG] 0 unit SQ ACHS #1 vial 06/08/21 [Rx] Follow up Appointment(s)/Referral(s): Catherine Nance DO [Primary Care Provider] - 1-2 days Activity/Diet/Wound Care/Special Instructions: CAITLYN: CBC, BMP in 3 days Incentive spirometer every 2 hours 10, while awake.
[2021-06-08 11:49] LABS: Glucose,Whole Blood 277 mg/dL (75-99)
--- NOTE | 2021-06-08 12:11 | CDI ---
Documentation Clarification Form Date: 06/08/2021 12:09:23 PM From: Cathy Deleon RN, CCDS Admit Date: 06/06/2021 03:23:00 PM Patient Name: Sheryl Montejo Visit Number: [id number] Discharge Date: ATTENTION: The Clinical Documentation Specialists (CDI) and [facility] Coding Staff appreciate your assistance in clarifying documentation. Please respond to the clarification below the line at the bottom and electronically sign. The CDI & [facility] Coding staff will review the response and follow-up if needed. Please note: Queries are made part of the Legal Health Record. If you have any questions, please contact the author of this message via ITS. Dr. Marques Nance Acute Rhabdomyolysis is documented in the discharge summary on 06/08/21. Additional clarification regarding the type of rhabdomyolysis is requested. History/Risk Factors: Diabetes Mellitus, Hypertension, Rib fractures. Clinical Indicators: 80-year-old female admit with near syncope, status post fall down 15 stairs. Sustaining multiple rib fractures. Her progress notes documents she was on floor overnight post fall. Multiple acute right-sided rib fractures, 3, 4, and 5 per chest x-ray. 06/06 Labs: Creatine Kinase 1439, Troponin I 1.380, 1.330 06/07 Surgery/Trauma service: Status post fall with rib fractures on the right- side including ribs 3, 4 and 5. Treatment: Aggressive pulmonary toileting with incentive spirometer. Monitor O2 Sat's (titrate) .9% NS IV @ 50 MLS/HR Morphine Sulfate 4 mg IVP Q 4 PRN Please clarify the type of rhabdomyolysis, if known: [ ] Traumatic rhabdomyolysis due to fall [ ] Traumatic rhabdomyolysis due to prolonged immobility [ ] Other, please specify [ ] Unable to Determine (Template Last Revised: December 2020) Traumatic rhabdomyolysis due to fall MTDD
--- NOTE | 2021-06-08 12:55 | P.PN ---
Subjective Progress Note Date: 06/08/21 HISTORY OF PRESENT ILLNESS: This is a 80-year-old female with a past medical history significant for hypertension, hyperlipidemia, diabetes mellitus, and urinary tract infection. Patient states she is to see a dog behaviorist many years ago but no longer follows regularly with 1. She does not remove the name of the dog behaviorist she followed with. She does report that she had a history of atrial flutter many many years ago but is currently not on anticoagulation. She does not recall if she was on anticoagulation in the past. We have been asked to see the patient in consultati on for elevated troponins. Patient examined at the bedside. Patient states yesterday she was walking up the stairs when she began to feel her legs getting weak and "shaky". The patient then reports that she fell down approximately 20 stairs. She does not believe she lost consciousness. She states she crawled back up the stairs afterwards and laid on the floor all night until the next morning. She denied feeling any chest pain or pressure prior to this event or so time of my examination. She denies any shortness of breath. She denies any dizziness or lightheadedness. Denies any nausea or vomiting. EKG reveals sinus mechanism with left axis deviation. No signs of acute ischemia Chest xray left lateral 6/7 and eighth rib fractures without pneumothorax. Some atelectasis may be adjacent. Pelvic x-ray: No acute posttraumatic changes. CT brain and cervical spine: Minimal degenerative spurring in the cervical spine. No fracture. Cerebral atrophy. No acute intracranial abnormalities. Left parietal scalp laceration. CT chest abdomen pelvis: Lower lobe pulmonary infiltrates with pleural fluid. No evidence of pulmonary embolism. Multiple acute right-sided rib fractures. Laboratory data: WBC 9.4. Hemoglobin 13.8. Platelet count 203. Sodium 137. Potassium 4.1. BUN 28. Creatinine 0.61. Creatinine kinase 1439. Troponin 1.380. 1.580. 1.330. Current home cardiac medications include simvastatin 20 mg every 48 hours, propanolol 60 mg at night, enalapril 20 mrem twice a day, and aspirin 81 mg twice a day 06/08/2021 Patient examined this morning at the bedside. Patient denies chest pain or pressure. Denies shortness of breath. Echocardiogram completed reveals ejection fraction 55-60%. Mild mitral regurgitation. Mild tricuspid regurgitation. Vital signs are stable. PHYSICAL EXAM: VITAL SIGNS: Reviewed. GENERAL: Well-developed in no acute distress. HEENT: Head is normocephalic. Pupils are equal, round. Sclerae anicteric. Mucous membranes of the mouth are moist. Neck supple. No JVD or thyromegaly LUNGS: Respirations even and unlabored. Lungs diminished bilaterally. HEART: Regular rate and rhythm. S1 and S2 heard. ABDOMEN: Soft. Nondistended. Nontender. EXTREMITIES: Normal range of motion. No clubbing or cyanosis. Peripheral pulses intact. No lower extremity edema NEUROLOGIC: Awake and alert. Oriented x 3. ASSESSMENT: S/P fall, patient does not appear to have had a syncopal episode Multiple acute rib fractures Elevated creatinine kinase Elevated troponin, possible NSTEMI Hypertension Hyperlipidemia Diabetes mellitus History of atrial flutter, type unknown, per patient, not on anticoagulation PLAN: Continue current cardiac medications No further inpatient recommendations from a cardiac standpoint Patient is stable for discharge home today from a cardiac perspective We will sign off. Please reconsult if needed. Nurse practitioner note has been reviewed by physician. Signing provider agrees with the documented findings, assessment, and plan of care. Objective - Vital Signs Vital signs: Vital Signs Temp 99.1 F 06/08/21 08:00 Pulse 62 06/08/21 08:00 Resp 19 06/08/21 10:30 BP 164/68 06/08/21 10:30 Pulse Ox 94 L 06/08/21 10:30 Intake & Output 06/07/21 06/08/21 06/08/21 18:59 06:59 18:59 Intake Total 608 540 Output Total 1650 1175 950 Balance -1042 -635 -950 Weight 62.5 kg Intake: Oral 608 540 Output: Urine 1650 1175 950 Other: Voiding Method Indwelling Catheter Indwelling Catheter Indwelling Catheter - Labs CBC & Chem 7: 06/08/21 08:17 06/08/21 08:17 Labs: Abnormal Lab Results - Last 24 Hours (Table) 06/07/21 06/07/21 06/07/21 Range/Units 07:46 13:10 16:48 RBC (3.80-5.40) m/uL Plt Count (150-450) k/uL Lymphocytes # (1.0-4.8) k/uL Sodium (137-145) mmol/L Creatinine (0.52-1.04) mg/dL Glucose (74-99) mg/dL POC Glucose (mg/dL) 136 H (75-99) mg/dL Hemoglobin A1c 6.4 H (4.0-6.0) % Creatine Kinase (30-135) U/L HDL Cholesterol 39.0 L (40.0-60.0) mg/dL 06/07/21 06/08/21 06/08/21 Range/Units 20:13 06:30 08:17 RBC (3.80-5.40) m/uL Plt Count (150-450) k/uL Lymphocytes # (1.0-4.8) k/uL Sodium 133 L (137-145) mmol/L Creatinine 0.45 L (0.52-1.04) mg/dL Glucose 130 H (74-99) mg/dL POC Glucose (mg/dL) 271 H 120 H (75-99) mg/dL Hemoglobin A1c (4.0-6.0) % Creatine Kinase 1127 H* (30-135) U/L HDL Cholesterol (40.0-60.0) mg/dL 06/08/21 06/08/21 Range/Units 08:17 11:47 RBC 3.46 L (3.80-5.40) m/uL Plt Count 146 L (150-450) k/uL Lymphocytes # 0.9 L (1.0-4.8) k/uL Sodium (137-145) mmol/L Creatinine (0.52-1.04) mg/dL Glucose (74-99) mg/dL POC Glucose (mg/dL) 277 H (75-99) mg/dL Hemoglobin A1c (4.0-6.0) % Creatine Kinase (30-135) U/L HDL Cholesterol (40.0-60.0) mg/dL
--- NOTE | 2021-06-08 13:59 | P.PN ---
Subjective Progress Note Date: 06/08/21 CHIEF COMPLAINT: Fall down flight of stairs HISTORY OF PRESENT ILLNESS: Trauma service is following regards to patient's fall. She has multiple right-sided rib fractures. Patient reports pain only with movement. Patient is sitting up at bedside chair. She is scheduled for discharge to subacute rehab today. She is tolerating diet. She denies any abdominal pain. Afebrile. WBC 7.7 PHYSICAL EXAM: VITAL SIGNS: Reviewed GENERAL: Well-developed in no acute distress. HEENT: No sclera icterus. Extraocular movements grossly intact. Moist buccal mucosa. Head is atraumatic, normocephalic. Hears conversational speech. No nasal drainage. NECK: Supple without lymphadenopathy. CHEST: Non-labored respirations and equal bilateral excursions. CARDIOVASCULAR: Palpable 2+ radial pulses. ABDOMEN: Soft. Nondistended. Nontender. MUSCULOSKELETAL: No clubbing or cyanosis. NEUROLOGIC: No focal or lateralizing signs. Cranial nerves II through XII grossly intact. PSYCH: Appropriate affect. Alert and oriented to person, place and time. SKIN: Well perfused. Good skin turgor. ASSESSMENT: 1. Status post fall with rib fractures on the right side including ribs 3, 4 and 5 2. Elevated troponins, possible NSTEMI evaluated by cardiology 3. Diabetes mellitus 4. Hypertension PLAN: -Patient stable from surgical standpoint for discharge -Agree with discharge to subacute rehab -Continue Tylenol as needed for pain -Continue incentive spirometer use and deep breathing exercises -Continue supportive care Physician Bean Sprout Laborer note has been reviewed by physician. Signing provider agrees with the documented findings, assessment, and plan of care. Objective - Vital Signs Vital signs: Vital Signs Temp 99.1 F 06/08/21 08:00 Pulse 62 06/08/21 08:00 Resp 19 06/08/21 10:30 BP 164/68 06/08/21 10:30 Pulse Ox 94 L 06/08/21 10:30 Intake & Output 06/07/21 06/08/21 06/08/21 18:59 06:59 18:59 Intake Total 608 540 Output Total 1650 1175 950 Balance -9565 -115 -345 Weight 62.5 kg Intake: Oral 608 540 Output: Urine 1650 1175 950 Other: Voiding Method Indwelling Catheter Indwelling Catheter Indwelling Catheter - Labs CBC & Chem 7: 06/08/21 08:17 06/08/21 08:17 Labs: Abnormal Lab Results - Last 24 Hours (Table) 06/07/21 06/07/21 06/07/21 Range/Units 07:46 13:10 16:48 RBC (3.80-5.40) m/uL Plt Count (150-450) k/uL Lymphocytes # (1.0-4.8) k/uL Sodium (137-145) mmol/L Creatinine (0.52-1.04) mg/dL Glucose (74-99) mg/dL POC Glucose (mg/dL) 136 H (75-99) mg/dL Hemoglobin A1c 6.4 H (4.0-6.0) % Creatine Kinase (30-135) U/L HDL Cholesterol 39.0 L (40.0-60.0) mg/dL 06/07/21 06/08/21 06/08/21 Range/Units 20:13 06:30 08:17 RBC (3.80-5.40) m/uL Plt Count (150-450) k/uL Lymphocytes # (1.0-4.8) k/uL Sodium 133 L (137-145) mmol/L Creatinine 0.45 L (0.52-1.04) mg/dL Glucose 130 H (74-99) mg/dL POC Glucose (mg/dL) 271 H 120 H (75-99) mg/dL Hemoglobin A1c (4.0-6.0) % Creatine Kinase 1127 H* (30-135) U/L HDL Cholesterol (40.0-60.0) mg/dL 06/08/21 06/08/21 Range/Units 08:17 11:47 RBC 3.46 L (3.80-5.40) m/uL Plt Count 146 L (150-450) k/uL Lymphocytes # 0.9 L (1.0-4.8) k/uL Sodium (137-145) mmol/L Creatinine (0.52-1.04) mg/dL Glucose (74-99) mg/dL POC Glucose (mg/dL) 277 H (75-99) mg/dL Hemoglobin A1c (4.0-6.0) % Creatine Kinase (30-135) U/L HDL Cholesterol (40.0-60.0) mg/dL
[2021-06-08 16:39] LABS: Glucose,Whole Blood 148 mg/dL (75-99)
[2021-06-08 20:19] LABS: Glucose,Whole Blood 272 mg/dL (75-99)
[2021-06-08] MEDS: OXYBUTYNIN CHLORIDE 5 MG TAB PO SCH (20:27)
[2021-06-08] MEDS: PROPRANOLOL LA 60 MG CAP.SA.24H PO SCH (20:27)
[2021-06-09] MEDS: SODIUM CHLORIDE 0.9% 1,000 ML IV SCH (02:53)
[2021-06-09 06:17] LABS: Glucose,Whole Blood 124 mg/dL (75-99)
[2021-06-09] MEDS: INSULIN ASPART (NovoLOG) 100 UNIT/ML VIAL SQ SCH (06:17)
[2021-06-09] MEDS: metFORMIN 500 MG TAB PO SCH (06:23)
[2021-06-09 07:36] VITALS: RESP 16
[2021-06-09] MEDS: MULTIVITAMINS, THERA 1 EACH TAB PO SCH (08:13)
[2021-06-09] MEDS: ASPIRIN 81 MG PO SCH (08:13)
[2021-06-09] MEDS: NON FORMULARY DRUG (Mirabegron [Myrbetriq] 50 MG Tab.Er.24h) PO SCH (08:13)
[2021-06-09] MEDS: ENOXAPARIN 40 MG/0.4 ML SYRINGE SQ SCH (08:13)
[2021-06-09] MEDS: ATORVASTATIN 10 MG TAB PO SCH (08:13)
[2021-06-09] MEDS: lisinopriL 20 MG TAB PO SCH (08:13)
[2021-06-09 10:56] VITALS: BP 129/68; PULSE 65; TEMP 97.8
--- NOTE | 2021-06-09 13:26 | P.PN ---
Subjective Progress Note Date: 06/09/21 CHIEF COMPLAINT: Fall down flight of stairs HISTORY OF PRESENT ILLNESS: Trauma service is following regards to patient's fall. She has multiple right-sided rib fractures. Patient sitting up in bed. She reports that her pain is controlled. She is scheduled for discharge to subacute rehab today. She was awaiting insurance authorization yesterday. She is tolerating diet. She denies any abdominal pain. Afebrile. PHYSICAL EXAM: VITAL SIGNS: Reviewed GENERAL: Well-developed in no acute distress. HEENT: No sclera icterus. Extraocular movements grossly intact. Moist buccal mucosa. Head is atraumatic, normocephalic. Hears conversational speech. No nasal drainage. NECK: Supple without lymphadenopathy. CHEST: Non-labored respirations and equal bilateral excursions. CARDIOVASCULAR: Palpable 2+ radial pulses. ABDOMEN: Soft. Nondistended. Nontender. MUSCULOSKELETAL: No clubbing or cyanosis. NEUROLOGIC: No focal or lateralizing signs. Cranial nerves II through XII grossly intact. PSYCH: Appropriate affect. Alert and oriented to person, place and time. SKIN: Well perfused. Good skin turgor. ASSESSMENT: 1. Status post fall with rib fractures on the right side including ribs 3, 4 and 5 2. Elevated troponins, possible NSTEMI evaluated by cardiology 3. Diabetes mellitus 4. Hypertension PLAN: -Patient stable from surgical standpoint for discharge -Agree with discharge to subacute rehab -Continue Tylenol as needed for pain -Continue incentive spirometer use and deep breathing exercises -Continue supportive care Physician Automatic Quilling Machine Operator note has been reviewed by physician. Signing provider agrees with the documented findings, assessment, and plan of care. Objective - Vital Signs Vital signs: Vital Signs Temp 97.8 F 06/09/21 10:54 Pulse 65 06/09/21 10:54 Resp 16 06/09/21 10:54 BP 129/68 06/09/21 10:54 Pulse Ox 97 06/09/21 10:54 Intake & Output 06/08/21 06/09/21 06/09/21 18:59 06:59 18:59 Intake Total 240 Output Total 950 200 Balance -950 240 -200 Weight 64.2 kg Intake: Oral 240 Output: Urine 950 200 Other: Voiding Method Indwelling Catheter Toilet Toilet # Voids 1 1 - Labs CBC & Chem 7: 06/08/21 08:17 08/10/21 08:17 Labs: Abnormal Lab Results - Last 24 Hours (Table) 06/08/21 06/08/21 06/09/21 Range/Units 16:37 20:16 06:16 POC Glucose (mg/dL) 148 H 272 H 124 H (75-99) mg/dL
--- NOTE | 2021-06-09 13:54 | P.PN ---
Subjective Progress Note Date: 06/09/21 Principal diagnosis: Trauma, status post fall, right-sided rib fractures This is an 80-year-old female that had a fall at home. She has a history of diabetes, hypertension, and urinary tract infection. The patient apparently fell down a flight of stairs. There was no loss of consciousness. The patient complained of pain in the right chest and back area. X-rays revealed fractured ribs on the right side. She did have old fractured ribs on the left side, and she admits that maybe she fell in the past as well. She denies any shortness of breath. She does complain of pain with deep inspiration. She denies any cough or phlegm production. No fever or chills. The patient has a history of diabetes mellitus, hypertension, prolapsed bladder, and urinary tract infection. Labs reveal a white count of 9.4, hemoglobin 13.8, hematocrit 40, platelet count 203,000. PT, INR, and PTT were normal. Sodium 132, potassium 4.6, chlorides 104, CO2 24, anion gap 4, BUN 23, and creatinine 0.5. CKs were 1439 and 1323. Troponin is 1.330. CT of the chest showed no evidence of pulmonary embolism. There were multiple right-sided rib fractures including ribs 3, 4, and 5. There is some chronic old rib fractures in the left lower lung area. Currently, the patient's resting comfortably. She is on a couple liters of oxygen. The patient is seen today 06/08/2021 in follow-up on the selective care unit. She is currently sitting up in bed. Awake and alert in no acute distress. No worsening shortness of breath, cough or congestion. Her pain is controlled from her right-sided rib fractures. She is working well with the incentive spirometer. She maintain O2 saturations in the mid 90s on room air. White count 7.7. Hemoglobin 11.6. Platelets 146. Sodium 133. Potassium 4.2. Creatinine 0.45. Creatinine kinase 1127. Echocardiogram reveals preserved left ventricular systolic function with ejection fraction 55-60%. The patient is seen today 06/09/2021 and follow-up on the selective care unit. She is currently sitting up in bed. Awake and alert in no acute distress. Denies any shortness of breath, cough or congestion. No hemoptysis. Right- sided chest wall pain is better controlled. She is working well with the incentive spirometer. She is maintaining good O2 saturation in the mid 90s on room air. She's afebrile. Blood glucose 124. Remains on Lovenox for DVT prophylaxis. Objective - Vital Signs Vital signs: Vital Signs Temp 97.8 F 06/09/21 10:54 Pulse 65 06/09/21 10:54 Resp 16 06/09/21 10:54 BP 129/68 06/09/21 10:54 Pulse Ox 97 06/09/21 10:54 Intake & Output 06/08/21 06/09/21 06/09/21 18:59 06:59 18:59 Intake Total 240 Output Total 950 200 Balance -950 240 -200 Weight 64.2 kg Intake: Oral 240 Output: Urine 950 200 Other: Voiding Method Indwelling Catheter Toilet Toilet # Voids 1 1 - Exam Very pleasant 80-year-old female patient. On room air. No acute distress, oriented 3. HEENT examination is grossly unremarkable. Neck supple. Full range of motion. No adenopathy thyromegaly or neck vein distention. Cardiovascular examination reveals regular rhythm rate. S1-S2 normal. No S3 or S4. No discernible murmur noted. Heart sounds are distant. Lungs reveal clear breath sounds. Breath sounds are equal bilaterally. No adventitious lung sounds including wheezes rhonchi or crackles. Abdomen soft bowel sounds are heard. No masses or tenderness. Extremities are intact. No cyanosis clubbing or edema. Skin is without rash or lesion. Neurologic examination is brief but nonfocal. - Labs CBC & Chem 7: 06/08/21 08:17 06/08/21 08:17 Labs: Abnormal Lab Results - Last 24 Hours (Table) 06/08/21 06/08/21 06/09/21 Range/Units 16:37 20:16 06:16 POC Glucose (mg/dL) 148 H 272 H 124 H (75-99) mg/dL Assessment and Plan Assessment: 1 Status post fall, with rib fractures on the right side, including rib 3, 4, and 5. 2 No obvious respiratory compromise at this time. 3 History of hypertension. 4 History of diabetes. 5 History of urinary tract infection. 6 History of bladder prolapse. 7 Prior history of old left rib fractures. Plan: The patient was seen and evaluated by Dr. Negrete Cleared for discharge from the pulmonary standpoint Continue to work with her incentive spirometer Follow-up in the office in 1-2 weeks' I, the cosigning physician, performed a history & physical examination of the patient. Lungs sounds are clear. Maintaining good O2 saturations in the 90s on room air. I discussed the assessment and plan of care with my nurse practi delio, Alem Ramirez. I attest to the above note as dictated by her.
== END 2021-06-09 13:03 | DRG 183 ==
LOC: EC 12:37 → 3SCARD 15:23
PROVIDERS: ADMIT Family Medicine; ATTEND Family Medicine
PROC: 0HQ0XZZ Repair Scalp Skin, External Approach (ICD-10-PCS; principal; 2021-06-06)
DX: S22.41XA Multiple fractures of ribs, right side, initial encounter for closed fracture (principal); I21.4 Non-ST elevation (NSTEMI) myocardial infarction; J98.11 Atelectasis; E11.65 Type 2 diabetes mellitus with hyperglycemia; S01.01XA Laceration without foreign body of scalp, initial encounter; T79.6XXA Traumatic ischemia of muscle, initial encounter; Z20.822 Contact with and (suspected) exposure to COVID-19; R55 Syncope and collapse; I10 Essential (primary) hypertension; E78.5 Hyperlipidemia, unspecified; R32 Unspecified urinary incontinence; N81.10 Cystocele, unspecified; Z79.84 Long term (current) use of oral hypoglycemic drugs; Z79.82 Long term (current) use of aspirin; Z79.899 Other long term (current) drug therapy; Z87.440 Personal history of urinary (tract) infections; Z87.39 Personal history of other diseases of the musculoskeletal system and connective tissue; Z90.89 Acquired absence of other organs; Z86.79 Personal history of other diseases of the circulatory system; Z87.81 Personal history of (healed) traumatic fracture; Z98.890 Other specified postprocedural states; Z88.2 Allergy status to sulfonamides; W10.9XXA Fall (on) (from) unspecified stairs and steps, initial encounter; Y92.008 Other place in unspecified non-institutional (private) residence as the place of occurrence of the external cause
CPT/HCPCS: 12002; 36415; 70450; 71045; 71260; 72125; 72170; 74177; 80048; 80053; 80061; 81003; 82550; 83036; 84484; 85025; 85610; 85730; 87635; 93005; 93306; 94760; 96361; 96374; 99285